=== PATIENT | female | born 1955 | race Caucasian/White ===

== ENCOUNTER 2019-02-01 11:33 | Outpatient (REF) | payer OTHER, SELFPAY ==
--- NOTE | 2019-02-01 09:30 | PAPFT_PTH ---
PATIENT: Pinky Dillon LOC: [facility] U#:[id number] AGE/SX: 63/F ROOM: RE02/01/[address]: LASHAWN Guidry : 1955 BED: DIS: 02/01/2019 SPEC #: [id number] RECD: 02/01/19 12:44 STATUS: ADRIA GARLAND #: [id number] AVELINA: 02/01/19 09:[address]: Klyah Vegas DEPT: [facility], LAT[facility] Cytology RECD BY: Jumana Carey Tissues: 1 - CX/ENDOCX FOR PAP SMEARS Procedures: PAP THIN PREP/UVM Screening HPV DNA PROBE Comments: [id number]
== END 2019-02-01 11:53 ==
LOC: LBN 11:33
PROVIDERS: Visit Provider Nurse Practitioner Family
DX: Z12.4 Encounter for screening for malignant neoplasm of cervix (principal); Z11.51 Encounter for screening for human papillomavirus (HPV)
CPT/HCPCS: 88142; 87624

== ENCOUNTER 2019-03-12 09:19 | Outpatient (CLI) | payer OTHER, SELFPAY ==
--- NOTE | 2019-03-12 12:18 | DI.MAMMO_ITS ---
EXAM: MG MAMMO SCREENING CLINICAL HISTORY: screening TECHNIQUE: Bilateral full field digital CC and MLO mammographic images were obtained with 3D tomosyn thesis and utilizing computer aided detection (CAD). COMPARISON: Available for comparison. FINDINGS: Masses/Architectural Distortion: None seen. Microcalcifications: No suspicious pleomorphic-type are seen. Skin Thickening/Nipple Retraction: None. IMPRESSION: 1. No significant interval change with no specific features of malignancy noted. 2. Unless there is more urgent need, screening mammography is recommended, as per [employer] guidelines. ACR BI-RAD Category- 1 Negative Breast Density - Category C - Heterogeneously dense The mammogram demonstrates the patient's breast tissue is dense. Dense breast tissue is very common a nd is not abnormal but dense breast tissue can make it harder to find cancer on a mammogram. Also, de nse breast tissue may increase their breast cancer risk. This information about the result of the [facility] mogram report was provided to the patient to raise their awareness. Use this report when you speak wi th the patient about their risks for breast cancer, which includes their family history. At that time , you may recommend for more screening tests (Ultrasound or MRI) as they might be useful based on the ir risk. A negative radiographic report should not delay biopsy if a dominant or clinically suspicious mass is present. Up to ten percent of cancers are not identified on mammography. A negative report may reinforce clinical impression. Adenosis and dense breasts may obscure an underlying neoplasm. False positive reports average 6 to 10%. Patient will receive a letter notifying them of these results.
== END 2019-03-12 09:39 ==
PROVIDERS: Visit Provider Nurse Practitioner Family
DX: Z12.31 Encounter for screening mammogram for malignant neoplasm of breast (principal)
CPT/HCPCS: 77063; 77067

== ENCOUNTER 2020-07-06 01:20 | Outpatient (CLI) | payer OTHER, SELFPAY ==
--- NOTE | 2020-07-06 06:30 | DI.MAMMO_ITS ---
EXAM: MAMMO SCREENING CLINICAL HISTORY: screening,Z12.39 TECHNIQUE: Mammograms were interpreted according to the usual protocol including computer analysis w [employer] CAD system, tomosynthesis and C-view imaging. COMPARISON: 2010 through 2018 FINDINGS: The breasts are composed of heterogeneously dense fibroglandular densities, Breast Density category C . No suspicious masses or suspicious microcalcifications are seen. No skin thickening or abnormal axillary lymph nodes are seen. There has been no significant change from prior exams. IMPRESSION: BI-RADS Category 1, Negative mammogram. Yearly screening mammography is recommended. Breast Density Category C, heterogeneously Dense. The mammogram demonstrates the patient's breast tissue is dense. Dense breast tissue is very common a nd is not abnormal but dense breast tissue can make it harder to find cancer on a mammogram. Also, de nse breast tissue may increase breast cancer risk. This information about the result of the mammogram report was provided to the patient to raise their awareness. Use this report when you speak with the patient about their risks for breast cancer, which includes their family history. At that time, you may recommend additional screening tests (Ultrasound or MRI) as they might be useful based on their r isk. A negative radiographic report should not delay biopsy if a dominant or clinically suspicious mass is present. Up to ten percent of cancers are not identified on mammography. A negative report may reinforce clinical impression. Adenosis and dense breasts may obscure an underlying neoplasm. False positive reports average 6 to 10%.
== END 2020-07-06 01:40 ==
PROVIDERS: PCP Family Medicine; Visit Provider Nurse Practitioner Family
DX: Z12.31 Encounter for screening mammogram for malignant neoplasm of breast (principal)
CPT/HCPCS: 77063; 77067

== ENCOUNTER 2021-06-17 11:17 | Outpatient (REF) | payer OTHER, SELFPAY ==
--- NOTE | 2021-06-17 09:30 | PAPFT_PTH ---
PATIENT: Pinky Dillon LOC: [facility] U#:[id number] AGE/SX: 65/F ROOM: RE06/17/[address]: LASHAWN Guidry : 1955 BED: DIS: 06/17/2021 SPEC #: [id number] RECD: 06/17/21 12:44 STATUS: ADRIA GARLAND #: [id number] AVELINA: 06/17/21 09:[address]: Kylah Vegas DEPT: [facility] Cytology RECD BY: Jumana Carey Tissues: 1 - CX/ENDOCX FOR PAP SMEARS Procedures: PAP THIN PREP/UVM Screening HPV DNA PROBE Comments: [id number]
== END 2021-06-17 11:18 | disposition home or self-care (01) ==
LOC: LBN 11:17
PROVIDERS: PCP Nurse Practitioner Family; Visit Provider Nurse Practitioner Family
DX: Z12.4 Encounter for screening for malignant neoplasm of cervix (principal); Z11.51 Encounter for screening for human papillomavirus (HPV)
CPT/HCPCS: 88142; 87624

== ENCOUNTER 2021-06-17 12:48 | Outpatient (REF) | payer OTHER, SELFPAY | END 2021-06-17 12:49 | disposition home or self-care (01) | LOC: LBN 12:48 | PROVIDERS: PCP Nurse Practitioner Family; Visit Provider Nurse Practitioner Family ==

== ENCOUNTER → 2021-10-07 01:15 | Outpatient (CLI) | payer OTHER, SELFPAY ==
--- NOTE | 2021-10-07 08:00 | DI.MAMMO_ITS ---
Exam(s) MAMMO SCREENING EXAM: MAMMO SCREENING CLINICAL HISTORY: screening,z12.39. TECHNIQUE: Bilateral full field digital CC and MLO mammographic images were obtained with 3D tomosyn thesis and utilizing computer aided detection (CAD). COMPARISON: Prior mammograms were reviewed, the most recent being June 2020. FINDINGS: Has been no significant change in the appearance and distribution of the fibroglandular tissue which is again noted be moderately dense.. There are no CAD designations. There are no new spiculated masses nor malignant appearing microcalcification groups. There is no significant architectural distortion nor skin thickening-retraction. IMPRESSION: Moderately dense fibroglandular tissue. No obvious radiographic evidence of malignancy. BI-RADS Category 1 - Negative Breast Density - Category C - Heterogeneously dense Breast density Category C or D implies that the patient has dense breast tissue. Dense breast tissue can make it harder to find cancer on a mammogram. Dense breast tissue is also associated with an incr eased risk of breast cancer. This information about the result of the mammogram report was provided to the patient to raise their awareness. Use this report when you speak with the patient about their risks for breast cancer, which includes their family history. At that time, you may recommend additional screening tests (Ultrasoun d or MRI) as these tests may add significant information. A negative radiographic report should not delay biopsy if a dominant or clinically suspicious mass is present. Up to ten percent of cancers are not identified on mammography. A negative report may reinforce clinical impression. Adenosis and dense breasts may obscure an underlying neoplasm. False positive reports average 6 to 10%. Patient will receive a letter notifying them of these results.
== END ==
PROVIDERS: PCP Family Medicine; Visit Provider Nurse Practitioner Family
DX: Z12.31 Encounter for screening mammogram for malignant neoplasm of breast (principal)
CPT/HCPCS: 77063; 77067

== ENCOUNTER 2021-10-12 02:38 | Outpatient (CLI) | payer OTHER, SELFPAY ==
[2021-10-12 13:17] LABS: Calculated LDL 168 mg/dL (<100); Cholesterol 280 mg/dL (<200); HDL Cholesterol 105 mg/dL (40-60); Triglyceride 37 mg/dL (<150)
[2021-10-13 09:48] LABS: HIV-1/2 Ag & Ab Screen Negative (Negative)
[2021-10-13 10:28] LABS: Hepatitis C Ab w Rflx HCV PCR Reactive (Negative)
[2021-10-14 13:05] LABS: HCV RNA Qualitative Undetected (Undetected)
== END 2021-10-12 02:39 | disposition home or self-care (01) ==
LOC: LOS 02:38
PROVIDERS: PCP Family Medicine; Visit Provider Family Medicine
DX: Z00.00 Encounter for general adult medical examination without abnormal findings (principal); Z13.220 Encounter for screening for lipoid disorders; Z11.4 Encounter for screening for human immunodeficiency virus [HIV]; Z11.59 Encounter for screening for other viral diseases
CPT/HCPCS: 36415; 80061; 86803; 87389; 87522

== ENCOUNTER → 2022-01-06 01:43 | Outpatient (CLI) | payer OTHER, SELFPAY ==
--- NOTE | 2022-01-06 14:17 | DI.DEXA_ITS ---
Exam(s) XR DEXA BONE DENSITY W/WO KARENA EXAM: XR DEXA BONE DENSITY W/WO KARENA CLINICAL HISTORY: screening FOR OSTEOPOROSIS IN POSTMENOPAUSAL WOMAN,Z78.0 TECHNIQUE: COMPARISON: No exams were available for comparison FINDINGS: Lateral Spine Image: Unremarkable. No compression deformities identified. Left hip: Total T-Score: -2.1 Total Z-Score: -0.8 T- and Z-scores: Findings are consistent with osteopenia. Lumbar Spine: Total T-Score: -1.8 Total Z-Score: 0.1 T- and Z-scores: Findings are consistent with osteopenia. IMPRESSION: Osteopenia in the left hip and lumbar spine.
== END ==
PROVIDERS: PCP Family Medicine; Visit Provider Family Medicine
DX: Z78.0 Asymptomatic menopausal state (principal); Z13.820 Encounter for screening for osteoporosis; M85.89 Other specified disorders of bone density and structure, multiple sites
CPT/HCPCS: 77080

== ENCOUNTER 2022-03-15 14:19 | Outpatient (REF) | payer OTHER, SELFPAY ==
[2022-03-17 12:30] LABS: COVID-19 RT-PCR UVMMC Result Negative (Negative)
== END 2022-03-15 14:20 | disposition home or self-care (01) ==
LOC: LBN 14:19
PROVIDERS: PCP Family Medicine; Visit Provider Physician Assistant
DX: Z20.822 Contact with and (suspected) exposure to COVID-19 (principal)
CPT/HCPCS: U0003

== ENCOUNTER 2022-03-25 16:45 | Inpatient (IN) | payer OTHER, MEDICARE, SELFPAY ==
--- NOTE | 2022-03-25 | DI.RAD_ITS ---
Exam(s) XR PELVIS AP EXAM: XR PELVIS AP CLINICAL HISTORY: ORTHO PELVIS FOR PREOP TEMPLATING. TECHNIQUE: 2D digital imaging was performed. One AP view. COMPARISON: CR,XR XR PELVIS AP from 03/25/2022 FINDINGS: BONES: No change right femoral neck fracture. No bony destructive lesion is seen. JOINTS: No dislocation present. No joint space narrowing is present. No hip joint space narrowing. SOFT TISSUE: Normal. IMPRESSION: Stable appearance right femoral neck fracture. DATA REPOSITORY: RADIATION DOSE DELIVERED:
[2022-03-25 16:48] VITALS: BP 151/84; PULSE 91; RESP 18; TEMP 36; O2SAT 98
--- NOTE | 2022-03-25 17:00 | DI.RAD_ITS ---
Exam(s) XR PELVIS AP EXAM: XR PELVIS AP CLINICAL HISTORY: fall, pain. TECHNIQUE: 2D digital imaging was performed. COMPARISON: No exams were available for comparison FINDINGS: BONES: Subcapital fracture with some impaction involving the right femur. No additional fractures. No bony destructive lesion is seen. JOINTS: No dislocation present. No joint space narrowing is present. SOFT TISSUE: Normal. IMPRESSION: Subcapital fracture right femur. DATA REPOSITORY: RADIATION DOSE DELIVERED:
--- NOTE | 2022-03-25 17:00 | DI.RAD_ITS ---
Exam(s) XR CHEST 1V IN DI DEPT EXAM: XR CHEST 1V IN DI DEPT CLINICAL HISTORY: cough 1.5 weeks, fall today TECHNIQUE: 2D digital imaging was performed. COMPARISON: No exams were available for comparison FINDINGS: LUNGS: Vague opacities right lung base and adjacent to the left heart border. Findings could represe nt pneumonia versus atelectasis or scarring. No pleural abnormality seen. HEART: Normal. AORTA: Calcification. Mildly tortuous BONES: Unremarkable for age. Soft tissues: Unremarkable. IMPRESSION: Mild bilateral infiltrates versus atelectasis or scarring. DATA REPOSITORY: RADIATION DOSE DELIVERED:
--- NOTE | 2022-03-25 17:02 | DI.RAD_ITS ---
Exam(s) XR FEMUR RT EXAM: XR FEMUR RT CLINICAL HISTORY: fall, pain. TECHNIQUE: 2D digital imaging was performed. COMPARISON: No exams were available for comparison FINDINGS: BONES: Subcapital fracture of the right femoral neck with significant varus angulation and some impac tion. No additional fractures are seen more distally. No bony destructive lesion is seen. Visualize d portion of knee and hip joints are unremarkable. SOFT TISSUE: Normal. IMPRESSION: Subcapital fracture right femoral neck. DATA REPOSITORY: RADIATION DOSE DELIVERED:
[2022-03-25] MEDS: Ondansetron 4 MG/2 ML VIAL IVP (17:22)
[2022-03-25] MEDS: Normal Saline Flush 10 ML SYR IVP (17:23)
[2022-03-25] MEDS: fentaNYL 100 MCG/2 ML VIAL 50 MCG IVP (17:23)
[2022-03-25 17:25] LABS: Abs Immature Grans 0.04 10^3/uL (0.0-0.06); Absolute Basophil Count 0.03 10^3/uL (0.0-0.2); Absolute Eosinophil Count 0.08 10^3/uL (0.0-0.7); Absolute Lymphocyte Count 1.58 10^3/uL (1.2-3.4); Absolute Monocyte Count 0.76 10^3/uL (0.1-0.8); Basophils % 0.4; HCT 38.7 % (36.0-46.0); HGB 12.3 g/dL (11.2-15.7); Immature Grans % 0.5; Lymphocytes % 20.5; MCH 29.5 pg (27.0-33.0); MCHC 31.8 % (32.0-36.0); MCV 93 fL (80-95); MPV 9.5 fL (8.0-11.0); Monocytes % 9.9; Neutrophils % 67.7; Platelet Count 183 10^3/uL (130-400); RBC 4.17 10^6/uL (3.93-5.22); RDW 13.6 % (11.7-14.6); RDW-SD 46.5 fL; WBC 7.69 10^3/uL (4.4-10.8)
[2022-03-25 17:35] LABS: Anion Gap 6.5 mmol/L (3-11); BUN 11 mg/dL (7-18); CO2 28.5 mmol/L (21.0-32.0); CREATININE 0.8 mg/dL (0.55-1.02); Chloride 100 mmol/L (98-107); Estimated GFR 80.71 (mL/min/1.73m2); Glucose 112 mg/dL (74-106); Potassium 4.1 mmol/L (3.5-5.1); Sodium 135 mmol/L (136-145)
--- NOTE | 2022-03-25 17:57 | ED.GENADUL_ITS ---
Discharge Plan Disposition Patient Disposition: Admit to [facility] Condition: Serious Discharge Details Chief Complaint: Orthopedic Clinical Impression: Closed displaced fracture of right femoral neck, Pneumonia Primary Care Provider: Kate Goff ED Provider: Alexi Butler Home Meds and New Rx's Prescriptions: No Action estradiol [Vagifem] 10 mcg tablet 10 mcg VG DAILY 14 Days Qty: 24 5RF Rx Instructions: use one tab in vagina daily at bedtime for 2-3 weeks then twice weekly lysine 1,000 MG tablet 1,000 mg PO PRN Medical Decision Making -- 66-year-old female here with right hip pain after mechanical fall about an hour prior to arrival. Patient fell and then had difficulty ambulating and fell again down 4 steps. Patient neurovascular tact distally. Concern for hip fracture versus pelvic fracture. Patient also with productive cough. She had negative COVID testing earlier this week. She does have subtle rales bilaterally. She is saturating well and in no respiratory distress. I will obtain chest x-ray. X-ray of the right hip reviewed and interpreted by me: Femoral neck fracture. I called and spoke with orthopedist on-call who request CT of the hip be performed. The rest patient be admitted to the medicine service. -- Chest x-ray was reviewed and interpreted by me: Lateral view could not be obtained, concern for left lower lobe infiltrate. Plan to initiate treatment with ceftriaxone 1 g and doxycycline 100 mg IV . Patient was initially given fentanyl 50 mcg for pain. I will give acetaminophen 1 g IV for pain. -- Was interpreted by radiology as lingular pneumonia. I spoke with Dr. Paz, on-call hospitalist, discussed ED presentation and course, he will admit the patient request bridging orders be placed to the floor. Lab Data Lab results reviewed: Yes I reviewed the patient's lab results. Labs: Laboratory Tests Range/Units 03/25/22 03/25/22 03/25/22 17:13 17:13 17:13 WBC (4.4-10.8) 10^3/uL 7.69 RBC (3.93-5.22) 10^6/uL 4.17 Hgb (11.2-15.7) g/dL 12.3 Hct (36.0-46.0) % 38.7 MCV (80-95) fL 93 MCH (27.0-33.0) pg 29.5 MCHC (32.0-36.0) % 31.8 L RDW (11.7-14.6) % 13.6 Plt Count (130-400) 10^3/uL 183 MPV (8.0-11.0) fL 9.5 Immature Gran % 0.5 Neutrophils % 67.7 Lymphocytes % 20.5 Monocytes % 9.9 Eosinophils % 1.0 Basophils % 0.4 Nucleated RBC % (0.0-0.3) % 0.0 Absolute Neutrophils (1.2-6.7) 10^3/uL 5.20 Absolute Lymphocytes (1.2-3.4) 10^3/uL 1.58 Absolute Monocytes (0.1-0.8) 10^3/uL 0.76 Absolute Eosinophils (0.0-0.7) 10^3/uL 0.08 Absolute Basophils (0.0-0.2) 10^3/uL 0.03 Sodium (136-145) mmol/L 135 L Potassium (3.5-5.1) mmol/L 4.1 Chloride (98-107) mmol/L 100 Carbon Dioxide (21.0-32.0) mmol/L 28.5 Anion Gap (3-11) mmol/L 6.5 BUN (7-18) mg/dL 11 Creatinine (0.55-1.02) mg/dL 0.8 Est GFR (CKD-EPI 2020) (mL/min/1.73m2) 80.71 Glucose (74-106) mg/dL 112 H Calcium (8.5-10.1) mg/dL 9.0 Patient ABO/Rh B Positive Antibody Screen NEGATIVE Sign Out No HPI General Mode of arrival: ambulatory . Date/Time Provider Initiated Documentation: 03/25/22 17:02 . Limitations to Documentation: no limitations . Information obtained by: patient . HPI Narrative: 66-year-old female presents with chief complaint of left hip pain. Patient notes she slipped on ice about an hour prior to arrival and landed on her right hip. She had difficulty ambulating after this and fell down 4 steps reinjuring the area. Pain is severe and worse with any movement. No associated head injury or headache. No chest pain or abdominal pain. No back pain or neck pain. Patient does note cough for the past week and a half. She was tested negative for COVID. Cough is productive of yellow sputum and worse in the morning. No fever. Related Data Home Medications Medication Instructions Recorded Confirmed lysine 1,000 mg tablet 1,000 mg PO PRN 12/22/15 03/25/22 estradiol 10 mcg vaginal tablet 10 mcg vaginal DAILY 2 weeks #24 06/17/21 03/25/22 (Vagifem) tabs Previous Rx's Medication Instructions Recorded estradiol 10 mcg vaginal tablet 10 mcg vaginal DAILY 2 weeks #24 06/17/21 (Vagifem) tabs Allergies Allergy/AdvReac Type Severity Reaction Status Date / Time No Known Drug Allergies Allergy Verified 03/25/22 16:53 General Stated Complaint: Orthopedic PAGE: 3 Review of Systems All systems reviewed & are unremarkable except as noted in HPI and below Constitutional Constitutional: Denies fever(s) Cardiovascular Cardiovascular: Denies dyspnea Respiratory Respiratory: Reports as per HPI and Denies dyspnea Musculoskeletal Musculoskeletal: Reports as per HPI PFSH All Active Problems (Updated 03/25/22 @ 19:08 by Alexi Butler MD) Closed displaced fracture of right femoral neck (Acute) Pneumonia (Acute) Weight loss observed on examination (Acute) COVID-19 (Acute) Tested + 12/31/21, no work secondary to continued symptoms. No antivirals. Rapid in office test NEG for Influenza & Covid today. Family history of colon cancer (Acute 03/17/17) Mother Dx at 77 Osteopenia after menopause (Acute ~01/07/22) Medical History History of COVID-19 Family History Mother , 80 Disorder of thyroid gland Personal history of malignant neoplasm COLON Father , 52 Heart disease Son Thyroid cancer Sister No problems noted. Sister No problems noted. Sister No problems noted. Brother , 48 No problems noted. Brother , 50 Alcohol use disorder Diabetes Brother No problems noted. Brother No problems noted. 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 [employer] Pets and animals: Yes Pets and animals: cat(s) Sexually active: Yes Do you think of yourself as: straight/heterosexual Current gender identity: female What is your relationship status?: How often do you talk on the phone with friends or family?: once per week How often do you get together with friends or relatives?: once per week How often do you attend mormon or yazdanism services?: decline to answer Do you belong to any clubs or organized social groups?: no Panel score (0-1 are the most socially isolated patients): 1 What type of physical activity do you participate in: walking Duration: 30-45 minutes/day Frequency: 1-2 times per week Coretta/Baptism: Taoism Special coretta needs: No Seatbelt use: always Helmet use: Yes Helmet use: always Drive intox or ride w/intox hearse driver: No Do you feel safe at home: Yes Do you feel safe in your relationship?: Yes Additional Social history: Enjoys camping, gardening, spending time with family / friends. Exam Const General: cooperative and no acute distress HENMT Head: normocephalic and atraumatic Mouth: moist mucous membranes Eyes Conjunctivae: normal conjunctivae Neck Neck: trachea midline and supple Resp Auscultation: no rhonchi Cardio Rate: regular rate and not tachycardic Rhythm: regular rhythm GI Palpation: soft, not firm, no guarding, no masses, not rigid and nontender Back/Spine/Pelvis Cervical Spine: cervical ROM normal, No cervical spinal tenderness and No step off deformity Thoracic/Lumbar Spine: thoracic and lumbar spine normal to inspection, No thoracic spinal tenderness and No lumbar spinal tenderness Skin General skin exam: no rashes or lesions noted Neuro General: patient alert, patient awake and tone normal Extrem General: no edema Right lower extremity: hip/thigh Details: tenderness Location: of the hip Location: laterally, knee Details: normal to inspection, lower leg Details: normal to inspection, ankle Details: normal to inspection and foot Details: normal to inspection Psych Appearance: grossly normal Mental Status: mental status grossly normal Course Vital Signs Vital signs: Vital Signs Temperature 36.0 C L 03/25/22 16:48 Pulse 91 H 03/25/22 16:48 Respiratory Rate 18 03/25/22 16:48 Blood Pressure 151/84 H 03/25/22 16:48 Pulse Oximetry 98 03/25/22 16:48 Temperature 36.0 C L 03/25/22 16:48 Temperature Source Temporal Artery Scan 03/25/22 16:48 Pulse 91 H 03/25/22 16:48 Respiratory Rate 18 03/25/22 16:48 Respiratory Effort Non-Labored 03/25/22 16:51 Blood Pressure 151/84 H 03/25/22 16:48 Blood Pressure Position Sitting 03/25/22 16:48 Pulse Oximetry 98 03/25/22 16:48 Oxygen Delivery Method Room Air 03/25/22 16:48 Oxygen Flow Rate 0 03/25/22 16:48 Pain Level 10 03/25/22 17:23 Lab/Test Results Lab/Test Results: Laboratory Tests Range/Units 03/25/22 03/25/22 17:13 17:13 WBC (4.4-10.8) 10^3/uL 7.69 RBC (3.93-5.22) 10^6/uL 4.17 Hgb (11.2-15.7) g/dL 12.3 Hct (36.0-46.0) % 38.7 MCV (80-95) fL 93 MCH (27.0-33.0) pg 29.5 MCHC (32.0-36.0) % 31.8 L RDW (11.7-14.6) % 13.6 Plt Count (130-400) 10^3/uL 183 MPV (8.0-11.0) fL 9.5 Immature Gran % 0.5 Neutrophils % 67.7 Lymphocytes % 20.5 Monocytes % 9.9 Eosinophils % 1.0 Basophils % 0.4 Nucleated RBC % (0.0-0.3) % 0.0 Absolute Neutrophils (1.2-6.7) 10^3/uL 5.20 Absolute Lymphocytes (1.2-3.4) 10^3/uL 1.58 Absolute Monocytes (0.1-0.8) 10^3/uL 0.76 Absolute Eosinophils (0.0-0.7) 10^3/uL 0.08 Absolute Basophils (0.0-0.2) 10^3/uL 0.03 Sodium (136-145) mmol/L 135 L Potassium (3.5-5.1) mmol/L 4.1 Chloride (98-107) mmol/L 100 Carbon Dioxide (21.0-32.0) mmol/L 28.5 Anion Gap (3-11) mmol/L 6.5 BUN (7-18) mg/dL 11 Creatinine (0.55-1.02) mg/dL 0.8 Est GFR (CKD-EPI 2020) (mL/min/1.73m2) 80.71 Glucose (74-106) mg/dL 112 H Calcium (8.5-10.1) mg/dL 9.0 PAWSS Have you Been Recently Intoxicated or Drunk Within the Last 30 days?: No Have you Ever Experienced Previous Episodes of Alcohol Withdrawal?: No Have you ever Experienced Withdrawal Seizures?: No Have you ever Experienced Delirium Tremens(DT)s?: No Have you ever undergone Alcohol Rehabilitation Treatment (i.e, inpt ot outpatient treatment programs)?: No Have you ever Experienced Blackouts?: No Have you ever Combined Alcohol with other Downers within the last 90 days?: No Have you ever Combined Alcohol with any other Substance of Abuse during the last 90 days?: No Positive Blood Alcohol level on Presentation? [PCS.BAL]: No Evidence of Increased Autonomic Activity (i.e. HR>120, tremor, sweating, agitation, nausea)?: No Result: 0
--- NOTE | 2022-03-25 18:15 | DI.CT_ITS ---
Exam(s) CT LOWER EXTREMITY RT WO EXAM: CT LOWER EXTREMITY RT WO CLINICAL HISTORY: trauma, fall, pain. TECHNIQUE: Imaging Protocol: Axial computed tomography images with coronal and sagittal reformatted images were created and reviewed. CONTRAST MATERIAL: Intravenous: Omnipaque 350 Contrast volume:structured data in ml Contrast route:IV - COMPARISON: CR,XR XR PELVIS AP from 03/25/2022 CR,XR XR FEMUR RT from 03/25/2022 FINDINGS: Bones: There is a fracture through the mid cervical neck with some varus angulation and impaction. Few tiny comminuted fragments are seen. No additional fractures. No cellulitic or osteomyelitic c hanges are identified. There is no joint space narrowing or cystic degeneration seen. No lytic or sc lerotic lesions are identified. Soft Tissues: Area of increased density in the subcutaneous fat of the inferior right buttock. IMPRESSION: Subcapital fracture of the right femur with angulation and impaction. RADIATION DOSE DELIVERED: 178.94mGy.cm Total DLP DATA REPOSITORY: All CT scans at this facility are submitted to the National Radiology Data Registry (NRDR) Dose Index Registry (DIR) with the [employer] (ACR). RADIATION OPTIMIZATION: All CT scans at this facility use at least one of these dose optimization te chniques: automated exposure control; mA and/or kV adjustment per patient size (includes targeted exa ms where dose is matched to clinical indication); or iterative reconstruction.
--- NOTE | 2022-03-25 18:35 | DI.VRAD_ITS ---
PROCEDURE INFORMATION: Exam: XR Pelvis Exam date and time: 03/25/2022 5:39 PM Age: 66 years old Clinical indication: Injury or trauma; Fall; Blunt trauma (contusions or hematomas); Right; Hip TECHNIQUE: Imaging protocol: Radiologic exam of the pelvis. Views: 1 or 2 view. COMPARISON: No relevant prior studies available. FINDINGS: Bones/joints: There is a moderately displaced right femoral neck fracture. There is an age indeterminate right sacral ala fracture. No dislocation. Soft tissues: Unremarkable. IMPRESSION: 1. Right femoral neck fracture. 2. Right sacral ala fracture. Dictated and Authenticated by: Vinny Terrazas MD. Ordering:RADHA Truong MD
--- NOTE | 2022-03-25 18:35 | DI.VRAD_ITS ---
PROCEDURE INFORMATION: Exam: XR Right Femur Exam date and time: 03/25/2022 5:41 PM Age: 66 years old Clinical indication: Other: Fall, pain TECHNIQUE: Imaging protocol: Radiologic exam of the Right femur. Views: 2 views. COMPARISON: CR XR PELVIS AP 03/25/2022 5:39 PM FINDINGS: Bones/joints: There is a moderately displaced right femoral neck fracture. Soft tissues: Unremarkable. IMPRESSION: Right femoral neck fracture. Dictated and Authenticated by: Vinny Terrazas MD. Ordering:RADHA Truong MD
--- NOTE | 2022-03-25 18:36 | DI.VRAD_ITS ---
PROCEDURE INFORMATION: Exam: XR Chest Exam date and time: 03/25/2022 5:46 PM Age: 66 years old Clinical indication: Other: Cough, 1.5 weeks, fall today TECHNIQUE: Imaging protocol: Radiologic exam of the chest. Views: 1 view. COMPARISON: No relevant prior studies available. FINDINGS: Lungs: There is lingular airspace opacity. The right lung is clear. Pleural spaces: No pleural effusion. No pneumothorax. Heart/Mediastinum: Heart size is normal for technique. Bones/joints: No acute bone abnormality. IMPRESSION: Lingular pneumonia. Dictated and Authenticated by: Vinny Terrazas MD. Ordering:RADHA Truong MD
[2022-03-25 18:49] LABS: Source Nasal/Nares
[2022-03-25] MEDS: ACETAMINOPHEN 1,000 MG/100 ML BTL 400 MG IVPB (19:00)
--- NOTE | 2022-03-25 19:00 | RT.EKG_ITS ---
APPROVED REPORT Exam: Resting ECG Reason for Exam: preop Patient Location: E HR:79 bpm ECG Measurements Heart Rate 79 AXIS FL 140 P 63 QRSd 87 QRS 16 QT 383 T 29 QTc 439 Conclusion Sinus rhythm...normal P axis, V-rate 60- 99 Low voltage, extremity leads...all extremity leads <0.5mV
[2022-03-25 19:19] LABS: COVID-19 PCR Negative (Negative)
[2022-03-25] MEDS: cefTRIAXone 1 GM/50 ML BAG IVPB (19:58)
--- NOTE | 2022-03-25 20:10 | DI.VRAD_ITS ---
PROCEDURE INFORMATION: Exam: CT Right Lower Extremity Without Contrast, Hip Exam date and time: 03/25/2022 7:27 PM Age: 66 years old Clinical indication: Injury or trauma; Fall; Blunt trauma; Hip; Right; Injury date: 03/25/22 TECHNIQUE: Imaging protocol: CT of the Right lower extremity without contrast was performed. Exam focused on the hip. Radiation optimization: All CT scans at this facility use at least one of these dose optimization techniques: automated exposure control; mA and/or kV adjustment per patient size (includes targeted exams where dose is matched to clinical indication); or iterative reconstruction. COMPARISON: CR XR FEMUR RT 03/25/2022 5:41 PM FINDINGS: Bones/joints: Acute midcervical fracture of the right femoral neck demonstrating about 35 degrees apex anterior angulation with about 10 degrees impaction at the medial cortical margin, producing mild varus angulation. Mild comminution at the medial cortical margin. No intertrochanteric extension. No other acute fractures. Soft tissues: Mild soft tissue swelling/stranding near the common hamstring tendon origin which may indicate an element of strain without features of high-grade retracted tear. No soft tissue hematoma. IMPRESSION: 1. Right femoral neck fracture detailed above. No intertrochanteric extension. 2. Mild stranding at the common hamstring tendon origin suggesting an element of strain without gross features of high-grade tendon tear by CT. Dictated and Authenticated by: Carlos A Bautista MD. Ordering:RADHA Truong MD
[2022-03-25] MEDS: DOXYCYCLINE 100 MG in Normal Saline 100 ML IVPB (20:58)
[2022-03-25] MEDS: HYDROmorphone 2 MG/ML SYR 1 MG IVP (21:00)
--- NOTE | 2022-03-25 21:05 | HPE_ITS ---
Date of service: 03/25/22 Time of Service: 21:06 Assessment and Plan Assessment and plan (1) Closed displaced fracture of right femoral neck: Start date: 03/25/22 Status: Acute Assessment and plan: This is a 66-year-old lady who fell injuring her right hip then walked on that leg with caution falling again down 4 stairs when trying to go off of her deck. She has a displaced closed fracture of the femoral neck on the right and has planned surgical repair in the morning with orthopedics consulted through the ED. She will be n.p.o. after midnight. Pain management and IV hydration overnight. Patient also has pneumonia which will be treated but she is minimally symptomatic at this time. EKG was normal. Lung findings were normal. She is not hypoxic or tachypneic. Anesthesia will need to be aware of her respiratory infection. She is COVID negative. She was not screened for flu not having fever or symptoms that are significant at this time having been 2 weeks ill prior to admission. She is a full code. (2) Pneumonia: Start date: 03/25/22 Status: Acute Assessment and plan: Patient had respiratory symptoms with cough and upper respiratory symptoms 2 weeks prior to admission which was slowly clearing with no fever and minimal symptoms presently though chest x-ray does show a left lingular infiltrate. She will be treated with doxycycline and ceftriaxone IV perioperatively and anesthes ia need to be aware of the small infiltrate. She is not oxygen dependent and has no cough presently. She has no fever and was not screened for flu now being 2 weeks out from her acute illness. She is COVID-negative. Qualifiers: Pneumonia type: due to unspecified organism Lung location: middle lobe of lung (3) Sacral fracture, closed: Start date: 03/25/22 Status: Acute Assessment and plan: Orthopedics will review this fracture seen on pelvic imaging. Most likely this is not a surgical issue but may contribute to her discomfort during rehabilitation. Qualifiers: Encounter type: initial encounter Zone of sacrum fracture: unspecified portion of sacrum Qualified Code(s): S32.10XA - Unspecified fracture of sacrum, initial encounter for closed fracture History of Present Illness History of Present Illness Chief Complaint: Fall onto right hip slipping on icy driveway Narrative: This is a 66-year-old female patient who presented to the ED complaining of righ t hip pain. She was on her [place] driveway when she slipped and fell onto her right hip with difficulty bearing weight after that injury. She went home and walked into her house with difficulty taking 1 step at a time. She forgot her cell phone therefore was going back out of her house and with the forceps off of her deck she slipped falling onto her right hip again. This time she could not bear weight at all. With her first injury she was in significant pain but the second injury was more debilitating. She was brought to the ED for evaluation and was found to have a femoral neck fracture of the right hip which was displaced along with a sacral elbert fracture on further imaging which is not a surgical issue. Orthopedics was consulted and patient does have planned hip repair in the morning. 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 She is on minimal medications and has no cardiovascular or respiratory symptoms other than a cold 2 weeks ago which slowly was clearing. In the ED chest x-ray also revealed left lingular infiltrate for which she is being treated with Zithromax and Rocephin. She has no fever. EKG for preop was normal sinus rhythm and within normal limits. She has lost 20 pounds in the recent past without explanation and this is being investigated further as an outpatient. She has no symptoms of why she may be losing weight except for possible change in eating habits being only p art-time at hospital. She is a full code. Review of Systems Narrative: 13 point review of systems otherwise unrevealing or stable. PFSH All Active Problems (Updated 03/26/22 @ 07:00 by Flako Paz) Sacral fracture, closed (Acute) Closed displaced fracture of right femoral neck (Acute) Pneumonia (Acute) Weight loss observed on examination (Acute) COVID-19 (Acute) Tested + 12/31/21, no work secondary to continued symptoms. No antivirals. Rapid in office test NEG for Influenza & Covid today. Family history of colon cancer (Acute 03/17/17) Mother Dx at 77 Osteopenia after menopause (Acute ~01/07/22) Medical History History of COVID-19 Family History Mother , 80 Disorder of thyroid gland Personal history of malignant neoplasm COLON Father , 52 Heart disease Son Thyroid cancer Sister No problems noted. Sister No problems noted. Sister No problems noted. Brother , 48 No problems noted. Brother , 50 Alcohol use disorder Diabetes Brother No problems noted. Brother No problems noted. 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 [employer] Pets and animals: Yes Pets and animals: cat(s) Sexually active: Yes Do you think of yourself as: straight/heterosexual Current gender identity: female What is your relationship status?: How often do you talk on the phone with friends or family?: once per week How often do you get together with friends or relatives?: once per week How often do you attend faith or holiness services?: decline to answer Do you belong to any clubs or organized social groups?: no Panel score (0-1 are the most socially isolated patients): 1 What type of physical activity do you participate in: walking Duration: 30-45 minutes/day Frequency: 1-2 times per week Coretta/Gnosticism: Oriental Orthodox Special coretta needs: No Seatbelt use: always Helmet use: Yes Helmet use: always Drive intox or ride w/intox limo driver: No Do you feel safe at home: Yes Do you feel safe in your relationship?: Yes Additional Social history: Enjoys camping, gardening, spending time with family / friends. Meds Allergies and Home Medications Allergies Allergy/AdvReac Type Severity Reaction Status Date / Time No Known Drug Allergies Allergy Verified 03/25/22 16:53 Home Medications Medication Instructions Recorded Confirmed Type lysine 1,000 mg tablet 1,000 mg PO PRN 12/22/15 03/25/22 History estradiol 10 mcg vaginal tablet 10 mcg vaginal DAILY 2 weeks #24 06/17/21 03/25/22 Rx (Vagifem) tabs Exam Narrative Exam Narrative: General: Patient appears older than stated age with well tanned skin and increased wrinkling with rough texture especially over her face. She is alert and oriented x3 and in no acute distress when not moving. Her right hip is tender with movement and she is lying comfortably in bed with her right foot slightly turned outward and shortened. HEENT: Normocephalic, face with coarsened features as mentioned, eyes with pupils equal and react to light symmetrically, extraocular movement intact and sclera anicteric. Oropharynx with moist mucosa. Neck: Supple without JVD. Back: Normal posture without CVA tenderness. Lungs: Fair aeration and clear to auscultation percussion. Breast: Exam deferred. Heart: Regular rate and rhythm with no murmurs gallops appreciated. Abdomen: Scaphoid contour, soft and nontender to palpation with no palpable hepatosplenomegaly. Genitalia: Exam deferred. Extremities: Without clubbing, cyanosis or pitting edema. Peripheral pulses intact. Right hip is tender to any movement and right leg is slightly shortened with right foot turned outward which is a comfortable position with the patient. Skin: Well tanned over sun exposed areas, otherwise warm and dry with rough texture over mostly upper body. Neuro: Cranial nerves II through XII gross intact, no focalizing motor deficits. Psych: Normal mood and affect. No abnormal thought processes. Remote and r ecent memory intact. Results Imaging Imaging Studies: Exam: CT Right Lower Extremity Without Contrast, Hip Exam date and time: 03/25/2022 7:27 PM Age: 66 years old Clinical indication: Injury or trauma; Fall; Blunt trauma; Hip; Right; Injury date: 03/25/22 TECHNIQUE: Imaging protocol: CT of the Right lower extremity without contrast was performed. Exam focused on the hip. Radiation optimization: All CT scans at this facility use at least one of these dose optimization techniques: automated exposure control; mA and/or kV adjustment per patient size (includes targeted exams where dose is matched to clinical indication); or iterative reconstruction. COMPARISON: CR XR FEMUR RT 03/25/2022 5:41 PM FINDINGS: Bones/joints: Acute midcervical fracture of the right femoral neck demonstrating about 35 degrees apex anterior angulation with about 10 degrees impaction at the medial cortical margin, producing mild varus angulation. Mild comminution at the medial cortical margin. No intertrochanteric extension. No other acute fractures. Soft tissues: Mild soft tissue swelling/stranding near the common hamstring tendon origin which may indicate an element of strain without features of high-grade retracted tear. No soft tissue hematoma. IMPRESSION: 1. Right femoral neck fracture detailed above. No intertrochanteric extension. 2. Mild stranding at the common hamstring tendon origin suggesting an element of strain without gross features of high-grade tendon tear by CT. Exam: XR Pelvis Exam date and time: 03/25/2022 5:39 PM Age: 66 years old Clinical indication: Injury or trauma; Fall; Blunt trauma (contusions or hematomas); Right; Hip TECHNIQUE: Imaging protocol: Radiologic exam of the pelvis. Views: 1 or 2 view. COMPARISON: No relevant prior studies available. FINDINGS: Bones/joints: There is a moderately displaced right femoral neck fracture. There is an age indeterminate right sacral ala fracture. No dislocation. Soft tissues: Unremarkable. IMPRESSION: 1. Right femoral neck fracture. 2. Right sacral ala fracture. Exam: XR Right Femur Exam date and time: 03/25/2022 5:41 PM Age: 66 years old Clinical indication: Other: Fall, pain TECHNIQUE: Imaging protocol: Radiologic exam of the Right femur. Views: 2 views. COMPARISON: CR XR PELVIS AP 03/25/2022 5:39 PM FINDINGS: Bones/joints: There is a moderately displaced right femoral neck fracture. Soft tissues: Unremarkable. IMPRESSION: Right femoral neck fracture. Exam: XR Chest Exam date and time: 03/25/2022 5:46 PM Age: 66 years old Clinical indication: Other: Cough, 1.5 weeks, fall today TECHNIQUE: Imaging protocol: Radiologic exam of the chest. Views: 1 view. COMPARISON: No relevant prior studies available. FINDINGS: Lungs: There is lingular airspace opacity. The right lung is clear. Pleural spaces: No pleural effusion. No pneumothorax. Heart/Mediastinum: Heart size is normal for technique. Bones/joints: No acute bone abnormality. IMPRESSION: Lingular pneumonia. Labs Result diagrams: 03/26/22 05:20 03/26/22 05:20 Labs: Laboratory Results - last 24 hr 03/25/22 03/25/22 03/25/22 17:13 17:13 17:13 WBC 7.69 RBC 4.17 Hgb 12.3 Hct 38.7 MCV 93 MCH 29.5 MCHC 31.8 L RDW 13.6 Plt Count 183 MPV 9.5 Immature Gran % 0.5 Neutrophils % 67.7 Lymphocytes % 20.5 Monocytes % 9.9 Eosinophils % 1.0 Basophils % 0.4 Nucleated RBC % 0.0 Absolute Neutrophils 5.20 Absolute Lymphocytes 1.58 Absolute Monocytes 0.76 Absolute Eosinophils 0.08 Absolute Basophils 0.03 Sodium 135 L Potassium 4.1 Chloride 100 Carbon Dioxide 28.5 Anion Gap 6.5 BUN 11 Creatinine 0.8 Est GFR (CKD-EPI 2020) 80.71 Glucose 112 H Calcium 9.0 COVID-19 Source SARS-CoV-2 (PCR) Patient ABO/Rh B Positive Antibody Screen NEGATIVE 03/25/22 18:38 WBC RBC Hgb Hct MCV MCH MCHC RDW Plt Count MPV Immature Gran % Neutrophils % Lymphocytes % Monocytes % Eosinophils % Basophils % Nucleated RBC % Absolute Neutrophils Absolute Lymphocytes Absolute Monocytes Absolute Eosinophils Absolute Basophils Sodium Potassium Chloride Carbon Dioxide Anion Gap BUN Creatinine Est GFR (CKD-EPI 2020) Glucose Calcium COVID-19 Source Nasal/Nares SARS-CoV-2 (PCR) Negative Patient ABO/Rh Antibody Screen Last Vital Signs Temp 36.0 C L 03/25/22 16:48 Pulse 91 H 03/25/22 16:48 Resp 18 03/25/22 16:48 BP 151/84 H 03/25/22 16:48 Pulse Ox 98 03/25/22 16:48 PAWSS Have you Been Recently Intoxicated or Drunk Within the Last 30 days?: No Have you Ever Experienced Previous Episodes of Alcohol Withdrawal?: No Have you ever Experienced Withdrawal Seizures?: No Have you ever Experienced Delirium Tremens(DT)s?: No Have you ever undergone Alcohol Rehabilitation Treatment (i.e, inpt ot outpatient treatment programs)?: No Have you ever Experienced Blackouts?: No Have you ever Combined Alcohol with other Downers within the last 90 days?: No Have you ever Combined Alcohol with any other Substance of Abuse during the last 90 days?: No Positive Blood Alcohol level on Presentation? [PCS.BAL]: No Evidence of Increased Autonomic Activity (i.e. HR>120, tremor, sweating, agitation, nausea)?: No Result: 0
[2022-03-25 22:06] LABS: Prothrombin Time 9.8 sec (9.3-11.0)
[2022-03-25 23:14] VITALS: BP 144/79; PULSE 78; RESP 16; TEMP 36.6; O2SAT 95
[2022-03-26] VITALS (16 sets, daily range): BP systolic 98–128; BP diastolic 56–78; PULSE 60–101; RESP 16–20; TEMP 35.7–37.1; O2SAT 94–98; BMI 21.9
[2022-03-26] MEDS: HYDROmorphone 2 MG/ML SYR 1 MG IVP (00:52)
[2022-03-26] MEDS: Normal Saline 1,000 ML 125 ML IV (00:55)
[2022-03-26] MEDS: Normal Saline Flush 10 ML SYR IVP ×2 (00:56→16:34)
[2022-03-26] MEDS: ACETAMINOPHEN 1,000 MG/100 ML BTL 400 MG IVPB (02:22)
[2022-03-26] MEDS: DOXYCYCLINE 100 MG in Normal Saline 100 ML IVPB ×2 (06:02→17:58)
[2022-03-26 06:12] LABS: HCT 34.9 % (36.0-46.0); HGB 11.1 g/dL (11.2-15.7); MCH 29.8 pg (27.0-33.0); MCHC 31.8 % (32.0-36.0); MCV 94 fL (80-95); MPV 9.9 fL (8.0-11.0); Platelet Count 177 10^3/uL (130-400); RBC 3.72 10^6/uL (3.93-5.22); RDW 13.6 % (11.7-14.6); RDW-SD 46.7 fL; WBC 6.78 10^3/uL (4.4-10.8)
--- NOTE | 2022-03-26 06:18 | W.ORTHOCONSU ---
Date of service: 03/26/22 History of Present Illness History of Present Illness Chief Complaint: Right Hip Pain Narrative: Chelsey is an active 66-year-old who fell yesterday. She fell onto her right side. She tried to get up and immediately fell once again going down a few stairs. She was unable to ambulate was brought into the emergency department. She was diagnosed with a femoral neck fracture on the right side. She has had persistent pain about the right hip. It is much better when she is not moving. She denies any radicular symptoms. She denies numbness or tingling. She also has been having a cough. His cough is been present for greater than week and a half. She has been COVID-19 tested twice which is negative. She denies any fevers. She denies any chest pain. She denies any shortness of breath. Her vital signs have been stable. There was concern about a lingular pneumonia seen on her x-ray. Consults Consult date: 03/25/22 Requesting physician: Flako Paz Consult Reason Right hip fracture Assessment and Plan Assessment and plan (1) Closed displaced fracture of right femoral neck: Status: Acute Assessment and plan: Chelsey is an active 66-year-old who suffered a femoral neck fracture on the right side. Given her age and active lifestyle the most definitive treatment would be a total hip replacement. Open reduction internal fixation has a significantly high failure rate especially given the orientation of the fracture, comminution, and her age. Hemiarthroplasty could also be considered but once again does has a limited life span given her active lifestyle and age, total replacement has greater longevity. I reviewed these treatment options with Chelsey. She agrees to proceed with hip replacement. I reviewed the risk of the procedure to include bleeding, infection, pain, stiffness, dislocation, length inequality, damage nerves and vessels, damage to muscle and tendons, blood clot, fracture, need for repeat procedures. Despite these risk, she elects to proceed. She has had this chronic cough with questionable pneumonia on the left lower lobe which would definitely increase her perioperative risk although I am uncertain what that number would be. Her symptoms have been stable and she is without systemic findings and she is COVID-19 negative. However, delaying treatment of the hip fracture also has increasing comorbidity. Resume anticoagulation this evening. After surgery she will be weightbearing as tolerated without restrictions. Review of Systems All systems reviewed & are unremarkable except as noted in HPI and below PFSH All Active Problems Sacral fracture, closed (Acute) Closed displaced fracture of right femoral neck (Acute) Pneumonia (Acute) Weight loss observed on examination (Acute) COVID-19 (Acute) Tested + 12/31/21, no work secondary to continued symptoms. No antivirals. Rapid in office test NEG for Influenza & Covid today. Family history of colon cancer (Acute 03/17/17) Mother Dx at 77 Osteopenia after menopause (Acute ~01/07/22) Medical History History of COVID-19 Family History Mother , 80 Disorder of thyroid gland Personal history of malignant neoplasm COLON Father , 52 Heart disease Son Thyroid cancer Sister No problems noted. Sister No problems noted. Sister No problems noted. Brother , 48 No problems noted. Brother , 50 Alcohol use disorder Diabetes Brother No problems noted. Brother No problems noted. 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 [employer] Pets and animals: Yes Pets and animals: cat(s) Sexually active: Yes Do you think of yourself as: straight/heterosexual Current gender identity: female What is your relationship status?: How often do you talk on the phone with friends or family?: once per week How often do you get together with friends or relatives?: once per week How often do you attend buddhism or caodaism services?: decline to answer Do you belong to any clubs or organized social groups?: no Panel score (0-1 are the most socially isolated patients): 1 What type of physical activity do you participate in: walking Duration: 30-45 minutes/day Frequency: 1-2 times per week Coretta/Mandaen: Adventism Special coretta needs: No Seatbelt use: always Helmet use: Yes Helmet use: always Drive intox or ride w/intox public transit bus driver: No Do you feel safe at home: Yes Do you feel safe in your relationship?: Yes Additional Social history: Enjoys camping, gardening, spending time with family / friends. Exam Const General: cooperative, healthy appearing, comfortable and no acute distress Extrem Other: Evaluation of the right lower extremity shows a shortened externally rotated limb. There is no overlying skin changes. No defects of the skin. No significant swelling. Pain to palpation about the right hip, range of motion not tested. No pain to palpation of the knee or the lower leg. Pelvic compression does not seem to increase pain. Sensation intact light touch over the deep and superficial peroneal nerve and tibial nerve. Palpable DP and PT pulse. Results Last Vital Signs Temp 36.1 C L 03/26/22 03:26 Pulse 76 03/26/22 03:26 Resp 19 03/26/22 03:26 BP 103/56 L 03/26/22 03:26 Pulse Ox 95 03/26/22 03:26 Labs Result diagrams: 03/26/22 05:20 03/25/22 17:13 Labs: Laboratory Results - last 24 hr 03/25/22 03/25/22 03/25/22 17:13 17:13 17:13 WBC 7.69 RBC 4.17 Hgb 12.3 Hct 38.7 MCV 93 MCH 29.5 MCHC 31.8 L RDW 13.6 Plt Count 183 MPV 9.5 Immature Gran % 0.5 Neutrophils % 67.7 Lymphocytes % 20.5 Monocytes % 9.9 Eosinophils % 1.0 Basophils % 0.4 Nucleated RBC % 0.0 Absolute Neutrophils 5.20 Absolute Lymphocytes 1.58 Absolute Monocytes 0.76 Absolute Eosinophils 0.08 Absolute Basophils 0.03 PT INR Sodium 135 L Potassium 4.1 Chloride 100 Carbon Dioxide 28.5 Anion Gap 6.5 BUN 11 Creatinine 0.8 Est GFR (CKD-EPI 2020) 80.71 Glucose 112 H Calcium 9.0 COVID-19 Source SARS-CoV-2 (PCR) Patient ABO/Rh B Positive Antibody Screen NEGATIVE 03/25/22 03/25/22 03/26/22 17:13 18:38 05:20 WBC 6.78 RBC 3.72 L Hgb 11.1 L Hct 34.9 L MCV 94 MCH 29.8 MCHC 31.8 L RDW 13.6 Plt Count 177 MPV 9.9 Immature Gran % Neutrophils % Lymphocytes % Monocytes % Eosinophils % Basophils % Nucleated RBC % Absolute Neutrophils Absolute Lymphocytes Absolute Monocytes Absolute Eosinophils Absolute Basophils PT 9.8 INR 1.0 Sodium Potassium Chloride Carbon Dioxide Anion Gap BUN Creatinine Est GFR (CKD-EPI 2020) Glucose Calcium COVID-19 Source Nasal/Nares SARS-CoV-2 (PCR) Negative Patient ABO/Rh Antibody Screen Imaging Imaging Studies: X-ray of the right femur and pelvis demonstrates a femoral neck fracture. It was unclear at the exact level of the femoral neck fracture persisted and if there is any trochanteric extension. Radiology read mentioned a sacral ala fracture on the right side although I do not quite see that. A repeat pelvis x-ray was also performed for surgical planning which once again shows no proximal femur extension. CT scan of the right femur was obtained which demonstrates a vertically oriented femoral neck fracture with some comminution. No extension into the greater trochanter. No apparent pelvic fracture. The sacral ala is not fully captured on this CT scan but what is visualized does not show fracture. There does appear to be some arthritis about the SI joint.
[2022-03-26 06:37] LABS: ALT 37 U/L (14-59); AST 26 U/L (15-37); Albumin 2.8 g/dL (3.4-5.0); Alkaline Phosphatase 311 U/L (46-116); Anion Gap 5.5 mmol/L (3-11); BUN 9 mg/dL (7-18); Bilirubin, Total 0.7 mg/dL (0.2-1.0); CO2 27.5 mmol/L (21.0-32.0); CREATININE 0.8 mg/dL (0.55-1.02); Calcium 8.5 mg/dL (8.5-10.1); Chloride 102 mmol/L (98-107); Estimated GFR 80.71 (mL/min/1.73m2); Glucose 93 mg/dL (74-106); Potassium 4.2 mmol/L (3.5-5.1); Sodium 135 mmol/L (136-145); Total Protein 7.3 g/dL (6.4-8.2)
--- NOTE | 2022-03-26 07:15 | DI.RAD_ITS ---
Exam(s) XR HIP RT IN OR EXAM: XR HIP RT IN OR CLINICAL HISTORY: Closed displaced fracture of right femoral neck. TECHNIQUE: 2D and realtime digital imaging was performed. COMPARISON: No exams were available for comparison FINDINGS: Fluoroscopy was provided in the OR. Hard copy image shows placement of the left hip prosthesis. Please see procedure note for details. Fluoro time: 32.2seconds RADIATION DOSE DELIVERED: Ka,r=3.25 mGy
--- NOTE | 2022-03-26 07:35 | ANES.PREOP_ITS ---
General Info Date of Service Date Performed: 03/26/22 Height: 5 ft 10 in Weight: 69.541 kg Body Mass Index (BMI): 21.9 Surgical Procedure: Operation Date: 03/26/22 06:55 Proposed Procedure Side Surgeon p Hip Total Hip Anterior Right Giovanni Ramos MD Meds Allergies and Home Medications Allergies Allergy/AdvReac Type Severity Reaction Status Date / Time No Known Drug Allergies Allergy Verified 03/25/22 16:53 Home Medication Medication Instructions Recorded lysine 1,000 mg tablet 1,000 mg PO PRN 12/22/15 estradiol 10 mcg vaginal tablet 10 mcg vaginal DAILY 2 weeks #24 06/17/21 (Vagifem) tabs Current Visit Medications: Current Medications Generic Name Dose Route Start Last Admin Trade Name Freq PRN Reason Stop Dose Admin Acetaminophen 0 mg 03/25/22 21:16 Acetaminophen 325 Mg Tab PO Q4H PRN PRN Al Hydrox/Mg Hydrox/Simethicone 30 ml 03/25/22 21:16 Mylanta Suspension 30 Ml Cup PO Q2H PRN PRN Dimethicone/Zinc Oxide 0 gm 03/25/22 21:11 Yoli Protect Cream 142 Gm Tube TP PRN PRN Docusate Sodium 100 mg 03/25/22 21:16 Docusate Sodium 100 Mg Cap PO TID PRN PRN Hydromorphone HCl 1 mg 03/26/22 00:32 03/26/22 00:52 Hydromorphone 2 Mg/Ml Syr IVP 1 meq Q2H PRN PRN Administration Sodium Chloride 500 mls @ 0 mls/hr 03/25/22 17:02 Saline 500ml Bag IV PRN PRN As Directed Cefazolin Sodium/Dextrose 2 gm in 50 mls @ 100 mls/hr 03/26/22 08:00 Ancef Duplex IVPB PREOP JOYCE Sodium Chloride 1,000 mls @ 125 mls/hr 03/26/22 02:00 03/26/22 00:55 Saline 1000ml Bag IV 125 mls/hr INFUSION JOYCE Administration Acetaminophen 1,000 mg in 100 mls @ 400 mls/hr 03/26/22 02:00 03/26/22 02:22 Ofirmev IVPB 400 mls/hr Q6H JOYCE Administration Doxycycline Hyclate 100 mg/ 100 mls @ 100 mls/hr 03/26/22 06:00 03/26/22 06:02 Sodium Chloride IVPB 100 mls/hr Q12H JOYCE Administration Ceftriaxone Sodium/Dextrose 1 gm in 50 mls @ 100 mls/hr 03/26/22 18:00 Rocephin IVPB Q24H JOYCE Tranexamic Acid 1,000 mg/ 60 mls @ 360 mls/hr 03/26/22 07:10 Sodium Chloride IVPB 03/26/22 07:19 PREOP STA Cefazolin Sodium/Dextrose 2 gm in 50 mls @ 100 mls/hr 03/26/22 07:15 Ancef Duplex IVPB PREOP JOYCE IV Miscellaneous Supplies 1 each 03/25/22 17:15 Iv Access IV DIRECTED JOYCE Magnesium Hydroxide 30 ml 03/25/22 21:16 Milk Of Magnesia 30 Ml Cup PO DAILY PRN PRN Polyethylene Glycol 17 gm 03/25/22 21:16 Polyethylene Glycol 3350 17 Gm Packet PO DAILY PRN PRN Constipation Sodium Chloride 0 ml 03/25/22 17:02 03/26/22 00:56 Normal Saline Flush 10 Ml Syr IVP 10 ml PRN PRN Administration PFSH Active Problems Active Problems: Problem Status Onset Code Sacral fracture, closed S32.10XA Closed displaced fracture of right femoral neck S72.001A Pneumonia J18.9 Weight loss observed on examination R63.4 COVID-19 U07.1 Family history of colon cancer 03/17/17 Z80.0 Osteopenia after menopause ~01/07/22 M85.80, Z78.0 Medical History Medical History History of COVID-19 Tobacco Smoking/Tobacco Use Status: Former Tobacco Use Second hand exposure: Yes Alcohol Alcohol Intake: current Alcohol intake frequency: a few times a month Alcohol type: wine and hard liquor Substance Use Substance use: Never Substance use type: does not use Vital Signs and Lab Results Vital Signs Most Recent Vital Signs in EMR: Most Recent Vital Signs Temp Pulse Resp BP Pulse Ox 36.8 C 76 18 116/69 96 03/26/22 06:59 03/26/22 06:59 03/26/22 06:59 03/26/22 06:59 03/26/22 06:59 Lab Results Result Diagrams: 03/26/22 05:20 03/26/22 05:20 Blood Type / Crossmatch: Patient ABO/Rh B Positive 03/25/22 Antibody Screen NEGATIVE 03/25/22 Complete Blood Count: White Blood Count 6.78 10^3/uL (4.4-10.8) 03/26/22 05:20 Red Blood Count 3.72 10^6/uL (3.93-5.22) L 03/26/22 05:20 Hemoglobin 11.1 g/dL (11.2-15.7) L 03/26/22 05:20 Hematocrit 34.9 % (36.0-46.0) L 03/26/22 05:20 Platelet Count 177 10^3/uL (130-400) 03/26/22 05:20 Complete Metabolic Panel: Sodium 135 mmol/L (136-145) L 03/26/22 05:20 Potassium 4.2 mmol/L (3.5-5.1) 03/26/22 05:20 Chloride 102 mmol/L (98-107) 03/26/22 05:20 Carbon Dioxide 27.5 mmol/L (21.0-32.0) 03/26/22 05:20 BUN 9 mg/dL (7-18) 03/26/22 05:20 Creatinine 0.8 mg/dL (0.55-1.02) 03/26/22 05:20 Est GFR (CKD-EPI 2020) 80.71 (mL/min/1.73m2) 03/26/22 05:20 Magnesium 2.0 mg/dL (1.8-2.4) 03/26/22 05:20 Calcium 8.5 mg/dL (8.5-10.1) 03/26/22 05:20 Albumin 2.8 g/dL (3.4-5.0) L 03/26/22 05:20 Glucose 93 mg/dL (74-106) 03/26/22 05:20 Liver Function Panel: Alanine Aminotransferase (ALT/SGPT) 37 U/L (14-59) 03/26/22 05: 20 Aspartate Amino Transf (AST/SGOT) 26 U/L (15-37) 03/26/22 05:20 Coagulation Panel: INR International Normalized Ratio 1.0 (0.9-1.1) 03/25/22 17:1 3 Prothrombin Time 9.8 sec (9.3-11.0) 03/25/22 17:13 Cardiac Panel: No Data to Display Arterial Blood Gas: No Data to Display Venous Blood Gas: No Data to Display Pancreas Panel: No Data to Display Thyroid Panel: No Data to Display Infectious Disease: Coronavirus (COVID-19)(PCR) Negative (Negative) 03/25/22 18:38 Coronavirus 2019 Source Nasal/Nares 03/25/22 18:38 Blood Cultures: No Data to Display Toxicology Panel: No Data to Display Imaging and Studies Imaging and Studies Study information below may be from another EMR and interpreted by another jewels hyatt. Please see original notes in EMR for more complete details. EKG Summary: 03/25/2022: Conclusion Sinus rhythm...normal P axis, V-rate 60- 99 Low voltage, extremity leads...all extremity leads <0.5mV Anesthesia Assessment and Plan Anesthesia History Personal History: PONV Family History: No Family History of Anesthesia Complications Exercise Tolerance Exercise Tolerance: Metabolic Equivalents>4 Pertinent Negatives Pertinent Negatives: No Symptoms of GERD, No Major Cardiovascular Symptoms or Complaints and No Major Pulmonary Symptoms or Complaints Cardiac & Pulmonary Exam Cardiac Exam: Normal S1/S2 Heart Sounds Pulmonary Exam: Clear Bilateral Breath Sounds Implantable Cardiac Device Does patient have a Pacemaker or an ICD?: No Airway Exam Known Difficult Airway: No Mallampati Class: 1 Mouth Opening: Normal (> 3cm) Thyromental Distance: Greater than 3 cm Neck Range of Motion: Full ROM Neck Circumference: Normal Teeth Condition: Removable Dentures/Plates Upper and Removable Dentures/Plates Lower ASA Classification ASA Score: ASA 2 Emergency Case?: No NPO Status NPO Status: NPO Clears >2 hours, Solids >8 hours Anesthesia Plan Resuscitation Status: Full Code Anesthesia Technique: Spinal Anesthesia Airway Planned: Natural Airway Monitors Used: Standard Monitors
[2022-03-26] MEDS: Lactated Ringers 1,000 ML 80 ML IV (08:20)
[2022-03-26] MEDS: ceFAZolin 2 GM/50 ML BAG IVPB (08:45)
--- NOTE | 2022-03-26 10:02 | W.PM.OP ---
Date of service: 03/26/22 Time of Service: 10:02 Operative Note Operative Note DATE OF PROCEDURE: 03/26/22 PRE-OP DIAGNOSIS: Right Femoral Neck Fracture POST-OP DIAGNOSIS: same PROCEDURE: Right Anterior Total Hip Dual Mobility Arthroplasty with Intraoperative Navigation SURGEON: Giovanni Ramos DOCUMENTATION LEAD: Jessica Deleon ANESTHESIA TYPE: Spinal Refer to Anesthesia Record ESTIMATED BLOOD LOSS: 200 PATHOLOGY: none sent TOURNIQUET TIME: 0 COMPLICATIONS: None Patient was transported to: PACU Patient's condition: stable Implants: 1. Depuy Bimentum Acetabular Component, 53mm 2. Depuy Bimentum Dual Mobility Liner, [id number] 3. Depuy Corail Standard Collared Femoral Stem, Size 14 4. Depuy Altrx Ceramic Femoral Head, Size 28+1.5mm Indications: I saw Chelsey in the hospital for a right femoral neck fracture. Given the displaced nature of the fracture and her age I had recommended a hip replacement for its treatment. I explained the risks of the procedure to include, but not limited to, bleeding, infection, pain, stiffness, fracture, damage to nerves and vessels, damage to muscles and tendons, loosening, instability, leg length inequality, need for repeat procedure, blood clot and cardiopulmonary demise. Despite these risks, Chelsey elected to proceed. Findings: There was a comminuted and displaced fracture through the femoral neck and a very vertical orientation. There was some earlier in the acetabulum noted as well. A dual mobility construct was implanted. Procedure Description: Chelsey was greeted in the preoperative holding area where the correct side was identified and marked. The consent was reviewed with the patient and signed. The history and physical was updated. All questions were answered. SHe was taken back to the operating room. A spinal anesthestic was then attempted but unsuccessful. Therefore, general anesthesia was administered. The feet were wrapped with cast padding and Coban and then placed into the boot liners and then into the boots. Care was taken to protect the skin and make sure the heels were fully down and the boots were stable. The patient was then positioned onto the HANA table. Both legs were held in a neutral position. SCDs were applied. The patient was then slid down onto a peroneal post. Prophylactic antibiotics in the form of Cefazolin were administered. 1g of Tranxemic Acid was given intravenously within 30 minutes of incision. The right leg was then prepped with Chloraprep and draped in a standard fashion. A second prep with Chloraprep was performed prior to placement of a shower-curtain type drape with Iodine impregnated skin protection. A timeout to confirm correct identity, side and site, procedure, allergies, anesthesia, and medical concerns was performed. An obliquely oriented incision was made starting lateral to the ASIS and running distal over the Tensor Fascia Pamela (TFL) muscle belly toward the fibular head, approximately 10cm. The skin and soft tissue was dissected sharply, through Guerrero?s fascia, and to the fascia of the TFL. With the fascia and superior border of the IT band identified, the fascia was incised with a new knife just above any perforators from the IT band. The TFL muscle belly was bluntly dissected away from the fascia and moved laterally. The fat between TFL and rectus was identified to ensure the dissection was not within the TFL. Blunt dissection created space between abductors and the capsule and retractor was placed over the lateral femoral neck. The fibers of the rectus femoris tendon were identified and these were freed from the anterior capsule. A second cobra retractor was placed around the medial femoral neck. The TFL was further retracted laterally to show the deep fascia. Careful dissection through this layer identified three main crossing vessels of the lateral femoral circumflex. These were cauterized in multiple locations and then cut without any noticeable bleeding. The TFL was further released bluntly from the deep fascia to expose anterior hip capsule and fat The Kapil orthopaedic retractor was then placed beneath the TFL and against sartorius and medial soft tissues to protect and retract the soft tissues. A T-capsulotomy was then performed starting at the superior lateral acetabulum and moving distally to the intertrochanteric ridge. Fracture hematoma was evacuated. These capsular flaps were tagged with a No. 1 Ethibond and elevated from within. The capsular flaps were released to the shoulder of the lateral neck and to the lesser trochanter to give excellent visualization of the proximal femur. The fracture had a significant vertical orientation with comminution medially. A neck osteotomy was performed using an oscillating saw based on preoperative templates, starting laterally at the shoulder and exiting at the level of the fracture. This cut started in the shoulder and of the lateral neck and exited medially. The saw was at all times directed medially to avoid injury to the greater trochanter. Gross traction was applied to the leg and the osteotomy opened. The intercalary osteotomy was removed. Then, the femoral head was removed with a corkscrew, making sure to protect the TFL on its exit. Traction was released after head removal. This was measured on the back table to determine the starting reamer size. Portions of the rectus obscuring visualization were minimally elevated off the superior acetabulum. An anterior retractor was placed over the anterior wall between capsule and labrum and attached to the Gripper retraction system. The femur was rotated to 90 degrees and medial capsule was fully released until the lesser trochanter was palpable and visible; the femur was returned to 30 degrees. A posterior retractor was placed similarly between capsule and labrum. This provided excellent visualization. The contents of the cotyloid fossa were removed with electrocautery and the labrum was removed with a knife. There was some early chondromalacia of the superior acetabulum. Acetabular reaming began with a 47mm reamer. This first reaming was directed anterior to posterior and medial to get down to the true floor. This was inspected and reamed until the true floor was reached. The anterior retractor was then released and entry and exit was provided by traction on the capsular flaps. I then reamed sequentially up to a 53mm reamer where good fit was obtained. The larger reamers were oriented based on anatomical reference of the anterior and lateral jorgensen to ensure proper abduction and anteversion. Positioning and size was confirmed with the fluoroscopy. A 53mm Depuy Bimentum acetabular component was selected. The deep tissues were irrigated. The acetabular component was then impacted in a position of about 40-45 degrees of abduction and 15-20 degrees of anteversion, using the patient?s anatomy as the ultimate landmark. Fluoroscopy was used to confirm this. There was excellent innersole maker of the acetabular component and the inserting handle was removed. A portion of the boni-articular cocktail was then injected around the acetabulum into the capsule and periosteum. This cocktail consisted of 123mg of Ropivacaine, 0.25mg of Epinephrine, 0.04mg of Clonidine, and 15mg of Ketorolac, diluted to 50cc. The leg was rotated to 120 degrees. Any remaining medial capsule was released until the lesser trochanter was easily palpable. A retractor was placed medially. The lateral capsule was further released into the shoulder to allow access to the greater trochanter. A Bobby retractor was placed over the greater trochanter which allowed the trochanter to flip in front of the capsule for excellent exposure. The leg was brought down into maximal extension and 20 degrees of adduction while ensuring there was no impingement on the acetabulum. Any remnant capsule within the trochanter was released. Piriformis and obturator externis were identified and protected. There was excellent access to the proximal femur. The lateral neck remnant was removed with a rongeur. A blunt canal probe was used to identify the canal and trajectory for later broaching. A box osteotome initiated the broach course. A small curved rasp and a curved curette were used to work laterally. Broaching then began with a size 8 Corail broach. This was inserted manually around the trochanter and into the canal before mallet blows. The broach was seated to the neck cut level based on the neck cut and the preoperative template. Sequential broaching was continued with the [place] pneumatic broaching device until a tight fit was obtained with good rotational control of the femur. A trial standard neck was inserted along with a +1.5 trial head inserted into the Bimentum dual mobility trial liner. The leg was brought out of extension and adduction and then reduced with traction and internal rotation. The leg was stable anteriorly in a position of 30 degrees of extension and 90 degrees of external rotation. Fluoroscopy was used to ensure there was no fracture and the stem was seated well. Leg lengths were checked with an AP pelvis and pelvic reference points. Time Bomb Deals navigation system was used to confirm appropriate positioning and leg length and offset. Once content with the desired offset and leg lengths, the leg was brought back into extension, external rotation and adduction. The periosteum and surrounding tissue was injected with remaining portion of the boni-articular cocktail. The proximal femur was irrigated as well as the deep tissues. The Depuy Corail standard collared stem, size 14, was then manually inserted into the proximal femur making sure to control rotation. It was then malleted into position with light blows, giving breaks to allow bone expansion and decrease risk of fracture. The selected Depuy Altrx Ceramic Head, size 28+1.5mm, was then placed into the Bimentum Dual Mobility liner, [id number]. This was then placed onto the clean and dry trunnion and secured with impaction onto the tapered fit. The leg was brought back out of extension and adduction and reduced with traction and internal rotation. Stability was confirmed with no shuck at 90 degrees of external rotation and 30 degrees of extension. No impingement through range of motion arc. Final x-ray images were obtained with fluoroscopy to confirm adequate positioning and no intraoperative fracture. The deep tissues were thoroughly irrigated with Surgiphor, betadine solution. This was allowed to sit in the wound for 3 minutes before being thoroughly irrigated out with normal saline. The capsule was then reapproximated with the previously placed Ethibond sutures. The TFL fascia was finally closed with a No. 2 Stratafix, barbed suture. Deep tissues were then reapproximated with 0 Vicryl and a running 2-0 Vicryl. The skin was closed with a running 4-0 Monocryl in a subcuticular fashion. This was reinforced with skin glue. A Mepilex silver dressing was applied. At the end of the case, all counts were correct. Chelsey was transferred to the hospital bed without difficulty and suffering no apparent complication. She has a good prognosis. Physical therapy will start today and without restrictions, weight-bearing as tolerated. DVT prophylaxis may start this evening with likely d/c on ASA 81mg BID.
--- NOTE | 2022-03-26 11:40 | W.PM.PROGNOT ---
Date of Service Date of service: 03/26/22 Time of Service: 11:40 Assessment and Plan Assessment and plan (1) Closed displaced fracture of right femoral neck: Status: Acute Assessment and plan: surgical repair day routine post operative care doing well pain management, bowel management, encourage amb. (2) Pneumonia: Status: Acute Assessment and plan: ceftriaxone and doxycycline day 2 pulmonary toileting incentive spirometry, acapella. oxygenating well on room air. Qualifiers: Lung location: middle lobe of lung Pneumonia type: due to unspecified organism (3) DVT prophylaxis: Status: Acute Assessment and plan: enoxaparin daily teds (4) Discharge planning issues: Status: Acute Assessment and plan: pt evaluation pending for discharge planning anticipate home with no services. discussed with DR Oh Subjective Subjective Patient reports: no new complaints, feels better, pain is less, tolerating liquids well, tolerating a regular diet and afebrile; denies shortness of breath Interval history since last seen: reambulated and doing well. minimal pain Exam Const General: cooperative, healthy appearing, comfortable and no acute distress Nutritional Appearance: thin Orientation: alert, awake and oriented x3 HENMT Head: normal to inspection, normocephalic and atraumatic Mouth: oral mucosae normal Resp Effort & Inspection: normal respiratory effort Cardio Rate: regular rate Rhythm: regular rhythm and other (good pedal pulses bilaterally) GI Inspection: normal to inspection Skin General skin exam: no rashes or lesions noted Lesions: other (surgical dressing clean dry and intact) Neuro General: patient alert, patient awake, patient oriented x3 and no focal motor deficits Motor: muscle tone normal throughout Extrem General: normal to inspection and no pedal edema Psych Appearance: grossly normal Mental Status: mental status grossly normal Speech and Movement: speech and movement normal Mood: congruent mood Affect: normal affect Attitude: cooperative Thought Process: normal Thought Content: normal Insight: insight good Judgment: judgment good Objective Last Vital Signs Temp 35.9 C L 03/26/22 11:36 Pulse 65 03/26/22 11:36 Resp 16 03/26/22 11:36 BP 120/69 03/26/22 11:36 Pulse Ox 95 03/26/22 11:36 Laboratory Results - last 24 hr 03/25/22 03/25/22 03/25/22 17:13 17:13 17:13 WBC 7.69 RBC 4.17 Hgb 12.3 Hct 38.7 MCV 93 MCH 29.5 MCHC 31.8 L RDW 13.6 Plt Count 183 MPV 9.5 Immature Gran % 0.5 Neutrophils % 67.7 Lymphocytes % 20.5 Monocytes % 9.9 Eosinophils % 1.0 Basophils % 0.4 Nucleated RBC % 0.0 Absolute Neutrophils 5.20 Absolute Lymphocytes 1.58 Absolute Monocytes 0.76 Absolute Eosinophils 0.08 Absolute Basophils 0.03 PT INR Sodium 135 L Potassium 4.1 Chloride 100 Carbon Dioxide 28.5 Anion Gap 6.5 BUN 11 Creatinine 0.8 Est GFR (CKD-EPI 2020) 80.71 Glucose 112 H Calcium 9.0 Magnesium Total Bilirubin AST ALT Alkaline Phosphatase Total Protein Albumin COVID-19 Source SARS-CoV-2 (PCR) Patient ABO/Rh B Positive Antibody Screen NEGATIVE 03/25/22 03/25/22 03/26/22 17:13 18:38 05:20 WBC RBC Hgb Hct MCV MCH MCHC RDW Plt Count MPV Immature Gran % Neutrophils % Lymphocytes % Monocytes % Eosinophils % Basophils % Nucleated RBC % Absolute Neutrophils Absolute Lymphocytes Absolute Monocytes Absolute Eosinophils Absolute Basophils PT 9.8 INR 1.0 Sodium 135 L Potassium 4.2 Chloride 102 Carbon Dioxide 27.5 Anion Gap 5.5 BUN 9 Creatinine 0.8 Est GFR (CKD-EPI 2020) 80.71 Glucose 93 Calcium 8.5 Magnesium 2.0 Total Bilirubin 0.7 AST 26 ALT 37 Alkaline Phosphatase 311 H Total Protein 7.3 Albumin 2.8 L COVID-19 Source Nasal/Nares SARS-CoV-2 (PCR) Negative Patient ABO/Rh Antibody Screen 03/26/22 05:20 WBC 6.78 RBC 3.72 L Hgb 11.1 L Hct 34.9 L MCV 94 MCH 29.8 MCHC 31.8 L RDW 13.6 Plt Count 177 MPV 9.9 Immature Gran % Neutrophils % Lymphocytes % Monocytes % Eosinophils % Basophils % Nucleated RBC % Absolute Neutrophils Absolute Lymphocytes Absolute Monocytes Absolute Eosinophils Absolute Basophils PT INR Sodium Potassium Chloride Carbon Dioxide Anion Gap BUN Creatinine Est GFR (CKD-EPI 2020) Glucose Calcium Magnesium Total Bilirubin AST ALT Alkaline Phosphatase Total Protein Albumin COVID-19 Source SARS-CoV-2 (PCR) Patient ABO/Rh Antibody Screen PAWSS Have you Been Recently Intoxicated or Drunk Within the Last 30 days?: No Have you Ever Experienced Previous Episodes of Alcohol Withdrawal?: No Have you ever Experienced Withdrawal Seizures?: No Have you ever Experienced Delirium Tremens(DT)s?: No Have you ever undergone Alcohol Rehabilitation Treatment (i.e, inpt ot outpatient treatment programs)?: No Have you ever Experienced Blackouts?: No Have you ever Combined Alcohol with other Downers within the last 90 days?: No Have you ever Combined Alcohol with any other Substance of Abuse during the last 90 days?: No Positive Blood Alcohol level on Presentation? [PCS.BAL]: No Evidence of Increased Autonomic Activity (i.e. HR>120, tremor, sweating, agitation, nausea)?: No Result: 0
--- NOTE | 2022-03-26 12:10 | INITIAL_ITS ---
- If Service Date Differs Date of service: 03/26/22 Time of Service: 12:10 Care Management Initial Assess REASON FOR HOSPITALIZATION:: Right hip fracture, Left lingular PNA PAST MEDICAL HISTORY/PAST SURGICAL HISTORY:: COVID-19 PREVIOUS FUNCTIONAL STATUS/SOCIAL/FAMILY SUPPORTS:: Resides in [place] with , Dilan. 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 CURRENT FUNCTIONAL STATUS:: Brought to OR today with Dr. Ramos for right femoral neck fracture fix; Right Anterior Total Hip Dual Mobility Arthroplasty with Intraoperative Navigation. Per MD: She has a good prognosis. Physical therapy will start today and without restrictions, weight-bearing as tolerated. DVT prophylaxis may start this evening with likely d/c on ASA 81mg BID. ADVANCE DIRECTIVES:: None on file. Has patient been provided with info about the portal/API?: Yes Did the patient sign up for the portal?: Yes CODE STATUS:: Full Code INSURANCE COVERAGE / FINANCIAL ISSUES:: [employer] CURRENT HOME/COMMUNITY SERVICES/EQUIPMENT:: None, currently. PRIMARY CARE PHYSICIAN:: Kate Goff POTENTIAL DISCHARGE NEEDS:: Evaluations for home services; PT consult anticipat ed. PATIENT/FAMILY EDUCATION NEEDS:: Review discharge instructions, discuss Ask Me Three. ANTICIPATED BARRIERS TO DISCHARGE:: None identified. TRANSPORTATION:: Via private vehicle with family. PLAN:: Anticipate Chelsey will return home when ready per MD. She will be evaluated by PT for need for VNA supports and DME equipment upon discharge. She will follow up with Ortho, her PCP and plan of care as prescribed and transport via private vehicle with her .
--- NOTE | 2022-03-26 12:59 | IN_ITS ---
Date of service: 03/26/22 PT Notes Visit Reasons: Right hip fracture, Left lingular PNA Inpatient Physical Therapy Evaluation Date: 03/26/22 Referring Doctor: Dr. Ramos PT Orders: PT CONSULT: femoral neck fx s/p right OLIMPIA Precautions: WBAT Patient Profile/Admitting Diagnosis: Patient presented to ER 03/25/22 after fall at home x 2. Found to have right femoral neck fx and underwent right OLIMPIA earlier today. She was also found to have a sacral ala fx, as well as minimally symptomatic pneumonia. PMHX: Sacral fracture, closed (Acute) Closed displaced fracture of right femoral neck (Acute) Pneumonia (Acute) Weight loss observed on examination (Acute) COVID-19 (Acute) Tested + 12/31/21, no work secondary to continued symptoms. No antivirals. Rapid in office test NEG for Influenza & Covid today.Family history of colon cancer (Acute 03/17/17) Mother? Dx at 77 Osteopenia after menopause (Acute ~01/07/22) Social History/Home Situation: Active and independent 66 year old female. 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. Lives in a single level home with her with 4 [address], single rail. Equipment Owned/DME: none Subjective: Chelsey states that she is ready to get up and try walking. She states that her pain has been under good control since her sugery. States that she feels so much better. Objective: General Observation: Resting in bed, IV in LUE. Mental Status: A&Ox3 Pain: well managed ROM: Right Upper Extremity: WNL Left Upper Extremity: WNL Right Lower Extremity: Hip motion assessed functionally, and shows at least 90* flexion, 0* extension. Left Lower Extremity: grossly WFL Sensation: intact at distal RLE Bed Mobility/Transfers: supine-sit: min A to RLE sit-stand: CGA stand-sit: CGA with cues for hand placement Gait: Ambulates 20'x2 with FWW, WBAT, CGA-supervision. Declined further ambulation due to fatigue. Stairs: Declines due to fatigue Balance: Static Sitting: normal Dynamic Sitting: normal Static Standing: good Dynamic Standing: fair Special Tests: Mobility Limitations Standardized Measure [facility] AM-PAC 6 clicks Basic Mobility Inpatient Short Form: Raw Score: 20 CMS Score: 36% impairment Informed Consent/Education: Patient instructed in purpose of PT consult and plan of care. She was instructed in seated exercises: Ankle Pumps x 1 minute Gluteal Sets x 1 minute LAQ x 1 minute Assessment: Patient is a 66 year old female referred to physical therapy services with the diagnosis of right femoral neck fx, s/p right OLIMPIA, post op day 0. Patient presents with clinical signs and symptoms consistent with post-op status. She requires FWW for ambulation, and will require issuance of FWW for home use to allow for safe household ambulation. She requires 1 additional session of skilled PT intervention for stair training, after which I anticipate she will be safe for return to community with assistance from family. She currently demonstrates the following impairment level findings: 1. decreased RLE strength, requiring min A for assistance to RLE during transfers 2. gait impairments Impairments are contributing to the following functional limitations: 1. gait impairments, with reliance on FWW for ambulation 2. decreased independence with bed mobility and transfers 3. unable to tolerate community distance ambulation Patient is assessed as a Low [id number] complexity based on the following: History: Active and independent 66 year old female presenting on post op day 0, s/p right OLIMPIA following femoral neck fx. Complicating factors include sacral fx, although pain is very well managed during today's session. Additional complication of pneumonia. Examination: functional limitations as noted above Presentation: stable Decision Making: low complexity Goals: Goals X1 week 1. Supine-Sit : supervision 2. Sit-Supine : supervision 3. Sit-Stand : supervision 4. Stand-Sit : supervision 5. Bed-Chair : supervision 6. Chair-Bed : supervision 7. Gait : supervision with FWW x 50' 8. Stairs : supervision with bilat UE support x 4 steps Plan of Care/Treatment Plan: 1-2x/day, 7 days/week x 1 week. Plan of care has been reviewed with the CARPENTER ASSISTANT providing the service under Physical Therapy direction. Initiate Physical Therapy intervention for strengthening, bed mobility, transfers, gait, stairs, balance training, use of assistive device. DISCHARGE RECOMMENDATIONS: Home with FWW (issued at time of service) TREATMENT CODE/TIME: 30223 (1:35-2:00) Lima Hicks, PT, DPT [facility]
[2022-03-26] MEDS: Ketorolac 15 MG/ML VIAL IVP ×2 (16:33→22:31)
[2022-03-26] MEDS: cefTRIAXone 1 GM/50 ML BAG IVPB (20:20)
[2022-03-26] MEDS: Docusate Sodium 100 MG CAP PO (23:17)
[2022-03-27 03:18] VITALS: BP 116/68; PULSE 68; RESP 17; TEMP 37.1; O2SAT 95
[2022-03-27] MEDS: Ketorolac 15 MG/ML VIAL IVP (04:04)
[2022-03-27] MEDS: Normal Saline Flush 10 ML SYR IVP (04:06)
[2022-03-27 06:56] VITALS: BP 113/66; PULSE 71; RESP 19; TEMP 36.7; O2SAT 95
--- NOTE | 2022-03-27 07:45 | NUR.NOTE ---
Nursing Note: Doxycycline admin on 03/27/22 am 0600 dosing. Pt reported tenderness and burning when flushing IV with normal saline. I reported to the patient that I would be happy to assist in getting them a new iv to ensure their safety with administration of IV doxycycline. Pt reported to me that they would rather not have an IV stick. and wanted to wait for the day time MD. to clarify as to weather or not they need they IV doxycycline as the patient is under the impression they are discharging today. because of the patients reported pain with iv flushing, i did not think it was safe to peruse in administering doxycycline.
--- NOTE | 2022-03-27 09:51 | W.PM.DS.N ---
Date of service: 03/27/22 Time of Service: 09:52 DS: Diagnosis Discharge Diagnosis (1) Closed displaced fracture of right femoral neck: Status: Acute (2) Pneumonia: Status: Acute Discharge Plan Disposition Patient Disposition: Home Condition: Good Discharge Details Reason For Visit: Right hip fracture, Left lingular PNA Admit Date/Time: 03/25/22 21:11 Admit Provider: Flako Paz Attending Provider: Flako Paz Primary Care Provider: Kate Goff Hospital Course Hospital Course: She was on her [employer] driveway when she slipped and fell onto her right hip with difficulty bearing weight after that injury.? She went home and walked into her house with difficulty taking 1 step at a time.? She forgot her cell phone therefore was going back out of her house and with the forceps off of her deck she slipped falling onto her right hip again.? This time she could not bear weight at all.? With her first injury she was in significant pain but the second injury was more debilitating.? She was brought to the [facility] ED for evaluation and was found to have a femoral neck fracture of the right hip which was displaced along with a sacral fracture on further imaging which is not a surgical issue.?Orthopedics was consulted. She underwent an uneventful total hip replacement. Patient also has pneumonia which was treated, she was minimally symptomatic.? EKG was normal.? Lung findings were normal.? She was not hypoxic or tachypneic.?Patient had respiratory symptoms with cough and upper respiratory symptoms 2 weeks prior to admission which was slowly clearing with no fever and minimal symptoms presently though chest x-ray does show a left lingular infiltrate. She was treated with doxycycline and ceftriaxone.? She is not oxygen dependent and has no cough or fever on discharge. Incidentally noted she has lost 20 pounds in the recent past without explanation and this is being investigated further as an outpatient.?She is discharged to home, stable with remainder of doxycline course and outpatient physical therapy. ? ? Home Meds and New Rx's Prescriptions: New celecoxib 200 mg capsule 200 mg PO BID PRN (Reason: pain) Qty: 60 1RF aspirin 81 mg tablet,delayed release (DR/EC) 81 mg PO BID Qty: 60 0RF acetaminophen 500 mg tablet 1,000 mg PO Q8H PRN (Reason: pain) Qty: 90 3RF pantoprazole 40 mg tablet,delayed release (DR/EC) 40 mg PO DAILY Qty: 30 0RF oxycodone 5 mg tablet 5 mg PO Q4H Qty: 12 0RF doxycycline hyclate 100 mg capsule 100 mg PO BID 5 Days Qty: 10 0RF Continued estradiol [Vagifem] 10 mcg tablet 10 mcg VG DAILY 14 Days Qty: 24 5RF Rx Instructions: use one tab in vagina daily at bedtime for 2-3 weeks then twice weekly lysine 1,000 MG tablet 1,000 mg PO PRN Discharge Instructions Instructions: Doxycycline (By mouth), Community Acquired Pneumonia (DC) Additional Instructions: Dr. Ramos's Total Hip Discharge Instructions Activity: The most important activity is to walk. You should try to take short walks a few times a day. You have no restrictions on movement or positioning, but do not try to force what you do. You will find some stiffness and weakness with hip flexion (lifting your knee). Do not try to strengthen this too early, continue to practice walking and stairs and this will come. You will be limited by fatigue, but this will improve. - Outpatient physical therapy can be helpful to help return you to a normal gait and improve your flexibility and strength. This can start around 2 weeks. For some patients, it?s not necessary. Usually this is determined at the time of discharge or at the first post-operative visit. - You should wear the ELVIRA hose on both legs for 2 weeks. Dressing: Keep the surgical dressing in place for at least one week. After the first week it may be removed and replace with light gauze and tape or nothing. It may get wet after 3 days but avoid soaking the dressing. If it gets wet, just lightly pat dry. It is important to always keep some gauze between skin folds, especially when you are sitting. Spend some time with the wound exposed when you are lying flat as the incision does wrinkle onto itself. Medications: - You should take Tylenol and an anti-inflammatory Celebrex as your primary pain control medications. If the Celebrex is too expensive or not covered, please call the office for another alternative (Advil/Ibuprofen or Naproxen/Aleve). - You have been prescribed a stronger pain medication Oxycodone for breakthrough pain, take as needed as prescribed. - You have also been prescribed a stomach acid reduction agent Pantoprozole to help reduce stomach acid and reflux. - You will be taking Aspirin 81mg twice a day for DVT prevention unless instructed otherwise. - If you have constipation you should take Colace or Miralax (both [id number]). It takes most people 3-4 days to have a bowel movement. Follow-up: 2 weeks If you have any acute concerns or questions, please do not hesitate to contact the office at [phone]. You may contact Dr. Ramos with any questions after hours through the hospital at [phone] or on his cell phone at [phone]. Take doxycycline twice a day for 5 days. Take a probiotic. Stand Alone Forms: Nursing Discharge Form Referrals: MARY LOU Stevenson [OTHER] - (Post op fx hip. Please call Monday to make an appointment.) Kate Goff MD [Primary Care Provider] - (Please call Monday to make a follow up appointment for 1-2 weeks.) Giovanni Ramos MD [[facility] STAFF PHYSICIAN] - (Please call office Monday to make an appointment for 2 weeks.) Activity:: Activity as Tolerated Equipment/Supplies:: No Equipment Needed Diet:: As Tolerated Discharge Orders Discharge Orders: Discharge Order (Routine); Ordered 03/27/22 Ordered By: Luda Graham Discharge Data Discharge Date/Time-TO BE ENTERED AT DEPARTURE: 03/27/22 11:45 DS: Summary Time Spent with Patient providing and/or coordinating discharge services: Greater than 30 minutes Status at Discharge Functional status at discharge: uses cane/walker Overall status at discharge: patient is progressing back to baseline Mental Status: mental status grossly normal Speech and Movement: speech and movement normal Mood: congruent mood Affect: normal affect Exam Const General: cooperative, healthy appearing, comfortable and no acute distress Nutritional Appearance: thin Orientation: alert, awake and oriented x3 HENMT Head: normal to inspection, normocephalic and atraumatic Mouth: oral mucosae normal Resp Effort & Inspection: normal respiratory effort Cardio Rate: regular rate Rhythm: regular rhythm and other (good pedal pulses bilaterally) GI Inspection: normal to inspection Skin General skin exam: no rashes or lesions noted Lesions: other (surgical dressing clean dry and intact) Neuro General: patient alert, patient awake, patient oriented x3 and no focal motor deficits Motor: muscle tone normal throughout Extrem General: normal to inspection and no pedal edema Psych Appearance: grossly normal Mental Status: mental status grossly normal Speech and Movement: speech and movement normal Mood: congruent mood Affect: normal affect Attitude: cooperative Thought Process: normal Thought Content: normal Insight: insight good Judgment: judgment good DS: Data Vitals/I&O Vitals and I&O: Vital Signs Temperature 36.7 C 03/27/22 06:56 Temperature Source Tympanic 03/27/22 06:56 Pulse 71 03/27/22 06:56 Pulse Rhythm Regular 03/27/22 08:15 Respiratory Rate 19 03/27/22 06:56 Respiratory Effort 03/27/22 08:15 Respiratory Depth Normal 03/27/22 08:15 Respiratory Pattern Normal 03/27/22 08:15 Blood Pressure 113/66 03/27/22 06:56 Blood Pressure Position Sitting 03/25/22 16:48 Pulse Oximetry 95 03/27/22 06:56 Oxygen Delivery Method Room Air 03/27/22 06:56 Oxygen Flow Rate 0 03/27/22 06:56 Pain Level 0 03/27/22 03:18 Comment 03/26/22 11:59 Intake & Output 03/26/22 03/26/22 03/27/22 11:59 23:59 11:59 Intake Total 610 / 2517.333 1907.333 / 2517.333 Output Total 850 / 1900 1050 / 1900 Balance -240 / 617.333 857.333 / 617.333 Weight 69.541 kg 71.2 kg Intake: IV 610 / 2517.333 1907.333 / 2517.333 Oral 0 / 0 Output: Urine 650 / 1700 1050 / 1700 Emesis 0 / 0 Estimated Blood Loss 200 / 200 Other: Urine Color Yellow Yellow Yellow Urine Appearance Clear Clear Clear Urine Odor None None Comment toilet insert emptied at this time. Emesis Description None Voiding Methods Bedpan Toilet Data Completed and Pending Labs on day of discharge: Preliminary micro results at discharge 03/25/22 18:53 Blood Culture - Preliminary Blood NO GROWTH 24 HOURS 03/25/22 18:47 Blood Culture - Preliminary Blood NO GROWTH 24 HOURS PFSH All Active Problems (Updated 03/28/22 @ 00:08 by BKG DAEMON) Sacral fracture, closed (Acute) Closed displaced fracture of right femoral neck (Acute) Pneumonia (Acute) Weight loss observed on examination (Acute) COVID-19 (Acute) Tested + 12/31/21, no work secondary to continued symptoms. No antivirals. Rapid in office test NEG for Influenza & Covid today. Family history of colon cancer (Acute 03/17/17) Mother Dx at 77 Osteopenia after menopause (Acute ~01/07/22) Medical History History of COVID-19 Family History Mother , 80 Disorder of thyroid gland Personal history of malignant neoplasm COLON Father , 52 Heart disease Son Thyroid cancer Sister No problems noted. Sister No problems noted. Sister No problems noted. Brother , 48 No problems noted. Brother , 50 Alcohol use disorder Diabetes Brother No problems noted. Brother No problems noted. 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 [employer] Pets and animals: Yes Pets and animals: cat(s) Sexually active: Yes Do you think of yourself as: straight/heterosexual Current gender identity: female What is your relationship status?: How often do you talk on the phone with friends or family?: once per week How often do you get together with friends or relatives?: once per week How often do you attend restoration or zoroastrian services?: decline to answer Do you belong to any clubs or organized social groups?: no Panel score (0-1 are the most socially isolated patients): 1 What type of physical activity do you participate in: walking Duration: 30-45 minutes/day Frequency: 1-2 times per week Coretta/Scientologist: Confucianism Special coretta needs: No Seatbelt use: always Helmet use: Yes Helmet use: always Drive intox or ride w/intox contract driver: No Do you feel safe at home: Yes Do you feel safe in your relationship?: Yes Additional Social history: Enjoys camping, gardening, spending time with family / friends.
--- NOTE | 2022-03-27 10:27 | W.PM.PROGNOT ---
Date of Service Date of service: 03/27/22 Time of Service: 10: Assessment and Plan Assessment and plan (1) Closed displaced fracture of right femoral neck: Status: Acute Assessment and plan: 66-year-old female doing well postop day #1 status post right anterior total hip arthroplasty for displaced femoral neck fracture No significant complaints or concerns. Mild discomfort soreness about anterior thigh. Greatly improved compared to preop. Dressing clean dry intact mild lateral thigh numbness. Able to weight-bear and demonstrate good hip flexion, knee extension, and ankle range of motion. No signs of blood clot or infection. No foot drop. Reviewed Dr. Ramos's postoperative instructions. Discussed with hospitalist. Plan on discharge home today. Objective Last Vital Signs Temp 98.1 F 03/27/22 06:56 Pulse 71 03/27/22 06:56 Resp 19 03/27/22 06:56 BP 113/66 03/27/22 06:56 Pulse Ox 95 03/27/22 06:56 PAWSS Have you Been Recently Intoxicated or Drunk Within the Last 30 days?: No Have you Ever Experienced Previous Episodes of Alcohol Withdrawal?: No Have you ever Experienced Withdrawal Seizures?: No Have you ever Experienced Delirium Tremens(DT)s?: No Have you ever undergone Alcohol Rehabilitation Treatment (i.e, inpt ot outpatient treatment programs)?: No Have you ever Experienced Blackouts?: No Have you ever Combined Alcohol with other Downers within the last 90 days?: No Have you ever Combined Alcohol with any other Substance of Abuse during the last 90 days?: No Positive Blood Alcohol level on Presentation? [PCS.BAL]: No Evidence of Increased Autonomic Activity (i.e. HR>120, tremor, sweating, agitation, nausea)?: No Result: 0
[2022-03-27 11:00] VITALS: BP 121/74; PULSE 85; RESP 20; TEMP 37.3; O2SAT 96
[2022-03-27] MEDS: Acetaminophen 325 MG TAB PO (11:07)
[2022-03-27] MEDS: Doxycycline Hyclate 100 MG CAP PO (11:28)
--- NOTE | 2022-03-27 12:32 | PT.INTREAT ---
PT Notes Visit Reasons: Right hip fracture, Left lingular PNA Inpatient Physical Therapy Treatment Note [facility] Date: 03/27/22 SUBJECTIVE:Chelsey reports that she is hoping to go home today. She has been doing her HEP without any problems. OBJECTIVE: [] BED MOBILITY/TRANSFERS pt already sitting in chair Sit-stand: SBA Stand-sit: SBA ] GAIT Assistive Device: FWW Weight bearing: AT right Assist: SBA Distance: 300' THEREX: HEP of LAQ, GS and AP STAIRS:ascend and descend clinic steps using 2 rails and SBA. 3x4 and 2x6 steps x2 each. ASSESSMENT: tolerated session well. No c/o pain with ambulation or ex. Seems to have a good understanding of her ex. Has appropriate equipment for home. PLAN: d/c home with . TREATMENT CODE/TIME: 20 min [id number]
--- NOTE | 2022-03-27 12:54 | W.ANESPOSTOP ---
Postoperative Evaluation Date, Time and Location Date Performed: 03/26/22 Time Performed: 10:20 Patient Location: PACU Vital Signs Most Recent Imported Vital Signs: Most Recent Vital Signs Temp Pulse Resp BP Pulse Ox 37.3 C 85 20 121/74 96 03/27/22 11:00 03/27/22 11:00 03/27/22 11:00 03/27/22 11:00 03/27/22 11:00 Pain Score Most Recent Pain Score: Most Recent Pain Score Pain Level [Right Hip] 7 03/25/22 18:03 Pain Level 0 03/27/22 03:18 Assessment Mental Status: Arousable with meaningful communication Airway and Respiratory Function: Patent airway with normal (patient baseline) respiratory exam Cardiovascular Function: Hemodynamically Stable Hydration Status: Adequately Hydrated Nausea & Vomiting: No Nausea or Vomiting Pain: Pain is tolerable per patient Peripheral Nerve Block: Patient did not receive a nerve block
--- NOTE | 2022-03-27 16:35 | PDOC.CMDIS ---
- If Service Date Differs Date of service: 03/27/22 Time of Service: 16:35 LACE Index Scoring Tool - Questions: Length of Stay (in days): 2 Acuity (Admit via E.D.?): Yes E.D. Visits: 1 - Answers: Total Score: 6 Risk of Readmission: Low Risk Care Management Discharge Reason for Hospitalization: Right hip fracture, Left lingular PNA Discharge Plan: Chelsey will return home when ready per MD, with no additional services. She will follow up with Ortho, her PCP and plan of care as prescribed and transport via private vehicle with her . Patient/Family Education Needs: Review discharge instructions, discuss Ask Me Three.
--- NOTE | 2022-03-28 17:40 | PT.INDS ---
Date of service: 03/28/22 PT Notes Visit Reasons: Right hip fracture, Left lingular PNA Inpatient Physical Therapy Discharge Summary Date: 03/28/22 Dates of Service: 03/26/2022 and 03/27/2022 Referring Doctor:? Dr. Ramos PT Orders: PT CONSULT: femoral neck fx s/p right OLIMPIA Precautions: WBAT Patient Profile/Admitting Diagnosis:?? Patient presented to ER 03/25/22 after fall at home x 2. Found to have right femoral neck fx and underwent right OLIMPIA earlier today. She was also found to have a sacral ala fx, as well as minimally symptomatic pneumonia. PMHX: Sacral fracture, closed (Acute) Closed displaced fracture of right femoral neck (Acute) Pneumonia (Acute) Weight loss observed on examination (Acute) COVID-19 (Acute) Tested + 12/31/21, no work secondary to continued symptoms. No antivirals. Rapid in office test NEG for Influenza & Covid today.Family history of colon cancer (Acute 03/17/17) Mother? Dx at 77 Osteopenia after menopause (Acute ~01/07/22) Social History/Home Situation: Active and independent 66 year old female. 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 Lives in a single level home with her with 4 AURE[address], single rail. Equipment Owned/DME: None Subjective:? NT. See most recent WHEEL PRESS OPERATOR notes. Objective:? General Observation: NT. See most recent WHEEL PRESS OPERATOR notes. Mental Status: NT. See most recent WHEEL PRESS OPERATOR notes. Pain: NT. See most recent WHEEL PRESS OPERATOR notes. ROM: Right Upper Extremity: WNL Left Upper Extremity: WNL Right Lower Extremity: Hip motion assessed functionally, and shows at least 90* flexion, 0* extension. Left Lower Extremity: grossly WFL Sensation:?intact at distal RLE BED MOBILITY/TRANSFERS? pt already sitting in chair? Sit-stand: SBA ? Stand-sit: SBA ? GAIT? Assistive Device: FWW ? Weight bearing: AT right Assist: SBA? Distance:? 300' ? Balance:? Static Sitting: Normal Dynamic Sitting: Normal Static Standing: Good Dynamic Standing: Fair Assessment:?? Patient is a 66 year old female referred to physical therapy services with the diagnosis of right femoral neck fx, s/p right OLIMPIA, post op day 0.? Patient presents with clinical signs and symptoms consistent with post-op status. She requires FWW for ambulation, and will require issuance of FWW for home use to allow for safe household ambulation. She returned home with family support on 03/27/2022. Goals: Goals X1 week 1. Supine-Sit : supervision NOT MET 2. Sit-Supine : supervision NOT MET 3. Sit-Stand : supervision NOT MET 4. Stand-Sit : supervision NOT MET 5. Bed-Chair : supervision NOT MET 6. Chair-Bed : supervision NOT MET 7. Gait : supervision with FWW x 50' NOT MET NOT MET 8. Stairs : supervision with bilat UE support x 4 steps DISCHARGE RECOMMENDATIONS: Home with FWW (issued at time of service) TREATMENT CODE/TIME: NC Thank you for the opportunity to participate in the care of this patient. Geovanna Abreu PT, DPT, CLT [facility] [place], [place]
== END 2022-03-27 11:45 | disposition home or self-care (01) | DRG 956 ==
LOC: ER 21:33 → MS 22:22
PROVIDERS: Student in an Organized Health Care Education/Training Program; Admitting Provider Family Medicine; Emergency Provider Student in an Organized Health Care Education/Training Program; PCP Family Medicine; Visit Provider Family Medicine
PROC: 0SR904A Replacement of Right Hip Joint with Ceramic on Polyethylene Synthetic Substitute, Uncemented, Open Approach (ICD-10-PCS; CPT 27130; principal; 2022-03-26 06:55)
DX: S72.011A Unspecified intracapsular fracture of right femur, initial encounter for closed fracture (principal); S32.19XA Other fracture of sacrum, initial encounter for closed fracture; J18.9 Pneumonia, unspecified organism; R63.4 Abnormal weight loss; Z68.22 Body mass index [BMI] 22.0-22.9, adult; Z86.16 Personal history of COVID-19; Z87.891 Personal history of nicotine dependence; Z80.0 Family history of malignant neoplasm of digestive organs; W00.0XXA Fall on same level due to ice and snow, initial encounter; W10.9XXA Fall (on) (from) unspecified stairs and steps, initial encounter
CPT/HCPCS: 27130; 20985; 36410; 36415; 73552; 80048; 80053; 85027; 86850; 86900; 86901; 87040; 87635; 93005; 96365; 96375; 97161; 97530; 99285; 71045; 72170; 73501; 73700; 83735; 85025; 85610; 93010; 99222; 99232; 99239; J0131; J0690; J0696; J1100; J1170; J1885; J2250; J2405; J3010

== ENCOUNTER 2022-04-08 10:55 | Outpatient (CLI) | payer OTHER, SELFPAY ==
--- NOTE | 2022-04-08 09:30 | DI.RAD_ITS ---
Exam(s) XR HIP RT COMPLETE AP PELVIS EXAM: XR HIP RT COMPLETE AP PELVIS CLINICAL HISTORY: 1st post op R OLIMPIA. TECHNIQUE: 2D digital imaging was performed. Two images were obtained. AP pelvis and lateral hip vi ews were obtained. COMPARISON: CR XR PELVIS AP from 03/25/2022 XA XR HIP RT IN OR from 03/26/2022 FINDINGS: BONES: There are stable post operative changes present. No fracture or dislocation. JOINTS: The orthopedic hardware is in good position. No evidence of hardware loosening. SOFT TISSUE: Normal. IMPRESSION: Stable postoperative changes. DATA REPOSITORY: RADIATION DOSE DELIVERED:
== END 2022-04-08 10:56 | disposition home or self-care (01) ==
LOC: DIORS 10:56
PROVIDERS: PCP Family Medicine; Referring Provider Family Medicine; Visit Provider Physician Assistant
DX: Z96.641 Presence of right artificial hip joint (principal); Z47.1 Aftercare following joint replacement surgery
CPT/HCPCS: 73502

== ENCOUNTER 2022-12-06 01:59 | Outpatient (CLI) | payer OTHER, SELFPAY ==
--- NOTE | 2022-12-06 12:00 | DI.MAMMO_ITS ---
Exam(s) MAMMO SCREENING EXAM: MAMMO SCREENING CLINICAL HISTORY: screening TECHNIQUE: Bilateral full field digital CC and MLO mammographic images were obtained with 3D tomosyn thesis and utilizing computer aided detection (CAD). COMPARISON: Available for comparison. FINDINGS: Masses/Architectural Distortion: None seen. Microcalcifications: No suspicious pleomorphic-type are seen. Skin Thickening/Nipple Retraction: None. IMPRESSION: 1. No significant interval change with no specific features of malignancy noted. 2. Unless there is more urgent need, screening mammography is recommended, as per [employer] guidelines. BI-RADS Category 1 - Negative Breast Density - Category C - Heterogeneously dense Breast density category C or D implies that the patient has dense breast tissue. Dense breast tissue is very common and is not abnormal but dense breast tissue can make it harder to find cancer on a ma mmogram. Also, dense breast tissue may increase their breast cancer risk. This information about the result of the mammogram report was provided to the patient to raise their awareness. Use this report when you speak with the patient about their risks for breast cancer, which includes their family hist ory. At that time, you may recommend for more screening tests (Ultrasound or MRI) as they might be us eful based on their risk. A negative radiographic report should not delay biopsy if a dominant or clinically suspicious mass is present. Up to ten percent of cancers are not identified on mammography. A negative report may reinforce clinical impression. Adenosis and dense breasts may obscure an underlying neoplasm. False positive reports average 6 to 10%. Patient will receive a letter notifying them of these results.
== END 2022-12-06 02:19 ==
LOC: DI 02:00
PROVIDERS: PCP Family Medicine; Visit Provider Nurse Practitioner Women's Health
DX: Z12.31 Encounter for screening mammogram for malignant neoplasm of breast (principal)
CPT/HCPCS: 77063; 77067

== ENCOUNTER 2023-01-23 07:37 | Day surgery (SDC) | payer OTHER, SELFPAY ==
--- NOTE | 2023-01-22 21:20 | W.PM.DSUDISC ---
Date of service: 01/23/23 Time of Service: 10:02 Discharge Plan Disposition Patient Disposition: Home Condition: Good Discharge Details Reason For Visit: screening colonoscopy Attending Provider: Jae Baez Primary Care Provider: Kate Goff Home Meds and New Rx's Prescriptions: Continued estradiol [Vagifem] 10 mcg tablet 10 mcg VG DAILY 14 Days Qty: 24 5RF Rx Instructions: use one tab in vagina daily at bedtime for 2-3 weeks then twice weekly lysine 1,000 MG tablet 1,000 mg PO PRN Discharge Instructions Instructions: Colorectal Polyps (GEN) Additional Instructions: Marcie, we were able to finish your colonoscopy today without any difficulty. I did find a total of 3 polyps. I removed these all completely. It will take about a week or 2 for me to get the results on the nature of the polyps, and I will be in touch at that point with any other recommendations. If you have any questions in the meantime, please do not hesitate to call. 1. If tolerated, consume a soft, low fiber diet for 1-2 days. 2[address] Do not drive, drink alcohol, operate machinery, make critical decisions, or do activities that require coordination or balance for 24 hours. 3. Because air was put into your colon during the procedure, expelling air from your rectum (passing gas or farting) is normal. 4. You may not have a bowel movement for 1-3 days because of the colonoscopy prep. This is normal. 5. Go directly to the emergency room if you notice any of the following: Develop chills (warm to touch), or if you have a thermometer and your temperature is above 101 Difficulty breathing or difficultly swallowing Persistent vomiting Severe abdominal pain, other than gas cramps Severe chest pain Black, tarry stools Any bleeding ? exceeding one tablespoon 6. Call your physician if the site where your intravenous was started becomes red, swollen, painful, and warm to touch. 7. Your physician has reviewed your pre-procedure medications. Please continue to take those medications as previously ordered. You will be given specific information/education regarding any changes to your medications before leaving. Activity:: Activity as Tolerated Diet:: As Tolerated Discharge Orders Discharge Orders: Discharge Order (Routine); Ordered 01/22/23 Ordered By: Jae Baez DS: Diagnosis Discharge Diagnosis (1) Screen for colon cancer: Status: Acute Asessment and Plan: Follow-up on polypectomy results
--- NOTE | 2023-01-22 21:21 | W.COLOREPORT ---
Date of service: 01/23/23 Time of Service: 10:03 Colonoscopy Report Date of procedure: 01/23/23 Pre-op diagnosis general: screening colonoscopy Post-op diagnosis procedure note: other (Colorectal polyps) Procedure: Colonoscopy with polypectomy Surgeon: Jae Baez Anesthesia Type: General:No Airway Estimated blood loss (mL): 5 Pathology: other (Rectal polyps x2, colon polyp at 35 cm) Complications: None Disposition: same day Indications: Chelsey is a 67 year old woman who needs another colonoscopy Prep: Miralax/Dulcolax Procedure Start Time: : Procedure End Time: :51 Retraction Time: 18 Findings: Rectal polyps x2, colon polyp at 35 cm Procedure Description: After the induction of monitored anesthetic care, and with the patient in left lateral decubitus position, I began by performing an external anorectal exam.? Perineum and skin were normal, as was the anal verge.? There was no not evidence of external hemorrhoids.? Next, I performed a digital rectal exam.? I did appreciate any abnormal findings.? Next, I advanced a colonoscope into the rectal vault.? There were 2 rectal polyps. Each was less than 0.25 cm. Each was sessile. I removed both of these with cold forceps polypectomy I performed retroflexion.? This appeared normal.? Using insufflation, I then advanced the colonoscope beyond the rectal folds and into the sigmoid colon before advancing towards the cecum.? The quality of the prep was excellent.? The scope was noted to be in the cecum by identification of the ileocecal valve and appendiceal orifice.? I then began withdrawing the colonoscope using repeated irrigation as necessary for full evaluation of the colonic mucosa. Around 35 cm from the anal verge I identified a 0.5 cm polyp. ?It appeared sessile in character. ?I was able to remove this with a cold forceps. ?I examined the site, and there was minimal bleeding. ?Once this was completed, I continued to withdraw the scope and examine the remainder of the colonic mucosa.?Once the scope was withdrawn to the level of the rectum, great care was taken to examine portions of the rectal folds.? Finally, the scope was withdrawn and the patient was brought to the same-day surgery recovery unit as the anesthetic wore off. ?The findings and instructions were shared with the patient prior to discharge.
[2023-01-23 08:00] VITALS: BP 125/75; PULSE 74; RESP 16; TEMP 36.3; O2SAT 97
[2023-01-23] MEDS: Lactated Ringers 1,000 ML 80 ML IV (08:45)
--- NOTE | 2023-01-23 09:07 | W.ANESPRE ---
General Info Date of Service Date Performed: 01/23/23 Height: 5 ft 10 in Weight: 67.8 kg Body Mass Index (BMI): 21.4 Surgical Procedure: Operation Date: 01/23/23 09:05 Proposed Procedure Side Surgeon p Colonoscopy Jae Baez MD Pre-Op Diagnosis Post-Op Diagnosis screening colonoscopy Meds Allergies and Home Medications Allergies Allergy/AdvReac Type Severity Reaction Status Date / Time No Known Drug Allergies Allergy Verified 01/23/23 08:16 Home Medication Medication Instructions Recorded lysine 1,000 mg tablet 1,000 mg PO PRN 12/22/15 estradiol 10 mcg vaginal tablet 10 mcg vaginal DAILY 2 weeks #24 11/14/22 (Vagifem) tabs Current Visit Medications: Current Medications Generic Name Dose Route Start Last Admin Trade Name Parkerq PRN Reason Stop Dose Admin Hyoscyamine Sulfate 0.125 mg 01/22/23 21:23 Hyoscyamine 0.125 Mg Sl/Oral/Chew SL 02/21/23 21:22 DIRECTED PRN Ringer's Solution 1,000 mls @ 80 mls/hr 01/23/23 06:00 01/23/23 08:45 IV 02/19/23 23:59 80 mls/hr INFUSION JOYCE Administration IV Miscellaneous Supplies 1 each 01/23/23 06:00 Iv Access IV 02/19/23 23:59 DIRECTED JOYCE Ondansetron HCl 4 mg 01/22/23 21:23 Ondansetron 4 Mg/2 Ml Vial IVP 02/21/23 21:22 Q4H PRN PRN Nausea / Vomiting Sodium Chloride 0 ml 01/23/23 06:00 Normal Saline Flush 10 Ml Syr IV 02/19/23 23:59 PRN PRN Sodium Chloride 0 ml 01/23/23 06:00 Normal Saline 10 Ml Vial IJ 02/19/23 23:59 DIRECTED PRN Sterile Water 0 ml 01/23/23 06:00 Water,Injection,Sterile 10 Ml Vial IJ 02/19/23 23:59 DIRECTED PRN PFSH Active Problems Active Problems: Problem Status Onset Code Screen for colon cancer Z12.11 Family history of colon cancer 03/17/17 Z80.0 Osteopenia after menopause ~01/07/22 M85.80, Z78.0 Anxiety disorder F41.9 Persaud hemangioma D18.01 Vaginal atrophy N95.2 Medical History Medical History Hepatitis C antibody positive in blood (~09/2021) HCV RNA negative History of COVID-19 Sacral fracture, closed Surgical History Surgical History History of colonoscopy 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) Tobacco Smoking/Tobacco Use Status: Former Tobacco Use Smokeless tobacco user: other Passive smoking exposure: Yes Second hand exposure: Yes Alcohol Alcohol Intake: current Alcohol intake frequency: a few times a month Alcohol type: wine and hard liquor Substance Use Substance use: Never Substance use type: does not use Prental History History 1 Para 1 Hx # Term Pregnancies Multiple births Hx # Pregnancies Ectopic pregnancies AB induced Hx Number of Living Children AB spontaneous Vital Signs and Lab Results Vital Signs Most Recent Vital Signs in EMR: Most Recent Vital Signs Temp Pulse Resp BP Pulse Ox 36.3 C L 74 16 125/75 97 01/23/23 08:00 01/23/23 08:00 01/23/23 08:00 01/23/23 08:00 01/23/23 08:00 Lab Results Blood Type / Crossmatch: No Data to Display Complete Blood Count: No Data to Display Complete Metabolic Panel: No Data to Display Liver Function Panel: No Data to Display Coagulation Panel: No Data to Display Cardiac Panel: No Data to Display Arterial Blood Gas: No Data to Display Venous Blood Gas: No Data to Display Pancreas Panel: No Data to Display Thyroid Panel: No Data to Display Infectious Disease: No Data to Display Blood Cultures: No Data to Display Toxicology Panel: No Data to Display Imaging and Studies Imaging and Studies Study information below may be from another EMR and interpreted by another provider. Please see original notes in EMR for more complete details. EKG Summary: 03/25/2022: Conclusion Sinus rhythm...normal P axis, V-rate 60- 99 Low voltage, extremity leads...all extremity leads <0.5mV Anesthesia Assessment and Plan Anesthesia History Personal History: PONV Family History: No Family History of Anesthesia Complications Exercise Tolerance Exercise Tolerance: Metabolic Equivalents>4 Pertinent Negatives Pertinent Negatives: No Symptoms of GERD, No Major Cardiovascular Symptoms or Complaints and No Major Pulmonary Symptoms or Complaints Cardiac & Pulmonary Exam Cardiac Exam: Normal S1/S2 Heart Sounds Pulmonary Exam: Clear Bilateral Breath Sounds Implantable Cardiac Device Does patient have a Pacemaker or an ICD?: No Airway Exam Known Difficult Airway: No Mallampati Class: 1 Mouth Opening: Normal (> 3cm) Thyromental Distance: Greater than 3 cm Neck Range of Motion: Full ROM Neck Circumference: Normal Teeth Condition: Removable Dentures/Plates Upper and Removable Dentures/Plates Lower ASA Classification ASA Score: ASA 2 Emergency Case?: No NPO Status NPO Status: NPO Clears >2 hours, Solids >8 hours Anesthesia Plan Resuscitation Status: Full Code Anesthesia Technique: General Anesthesia Airway Planned: Natural Airway Monitors Used: Standard Monitors
[2023-01-23 09:13] VITALS: BMI 21.4
--- NOTE | 2023-01-23 09:27 | BOWEL_PTH ---
PATIENT: Pinky Dillon LOC: [facility] U#:[id number] AGE/SX: 67/F ROOM: RE01/23/[address]: Jae Baez MD : 1955 BED: DIS: 01/23/2023 SPEC #: [id number] RECD: 01/23/23 13:00 STATUS: [facility] #: [id number] AVELINA: 01/23/23 09:[address]: Jae Baez DEPT: Surgical Specimen RECD BY: Jumana Carey ENTERED: 01/23/23 13:00 SP TYPE: Bowel OTHR DR: Kate Goff Tissues: 1 - BIOPSY BOWEL 2 - BIOPSY BOWEL Procedures: GROSS AND MICRO LEVEL 4 Comments: [id number]
[2023-01-23 10:00] VITALS: BP 106/75; PULSE 69; RESP 16; TEMP 36.2; O2SAT 97
[2023-01-23 10:29] VITALS: BP 128/80; PULSE 62; RESP 16; TEMP 36.3; O2SAT 98
--- NOTE | 2023-01-23 10:48 | W.ANESPOSTOP ---
Postoperative Evaluation Date, Time and Location Date Performed: 01/23/23 Time Performed: 10:48 Patient Location: Day Surgery Unit Vital Signs Most Recent Imported Vital Signs: Most Recent Vital Signs Temp Pulse Resp BP Pulse Ox 36.3 C L 62 16 128/80 98 01/23/23 10:29 01/23/23 10:29 01/23/23 10:29 01/23/23 10:29 01/23/23 10:29 Pain Score Most Recent Pain Score: Most Recent Pain Score Pain Level 0 01/23/23 10:29 Assessment Mental Status: Awake (Alert & Oriented to Patient Baseline) Airway and Respiratory Function: Patent airway with normal (patient baseline) respiratory exam Cardiovascular Function: Hemodynamically Stable Hydration Status: Adequately Hydrated Nausea & Vomiting: No Nausea or Vomiting Pain: Pt. Denies Any Pain Peripheral Nerve Block: Patient did not receive a nerve block
== END 2023-01-23 11:00 | disposition home or self-care (01) ==
PROVIDERS: PCP Family Medicine; Visit Provider Surgery
PROC: 0DJD8ZZ Inspection of Lower Intestinal Tract, Via Natural or Artificial Opening Endoscopic (ICD-10-PCS; CPT 45378; principal; 2023-01-23 09:00)
DX: Z12.11 Encounter for screening for malignant neoplasm of colon (principal); K62.1 Rectal polyp; K63.5 Polyp of colon; Z86.010 Personal history of colon polyps; Z80.0 Family history of malignant neoplasm of digestive organs
CPT/HCPCS: 45380; 88305; J2001

== ENCOUNTER 2023-03-08 10:42 | Outpatient (CLI) | payer OTHER, SELFPAY ==
[2023-03-08 12:09] LABS: Abs Immature Grans 0.01 10^3/uL (0.0-0.06); Absolute Basophil Count 0.06 10^3/uL (0.0-0.2); Absolute Eosinophil Count 0.15 10^3/uL (0.0-0.7); Absolute Lymphocyte Count 1.87 10^3/uL (1.2-3.4); Absolute Monocyte Count 0.69 10^3/uL (0.1-0.8); Absolute Neutrophil Count 3.59 10^3/uL (1.2-6.7); Basophils % 0.9; Eosinophils % 2.4; HCT 40.8 % (36.0-46.0); HGB 13.2 g/dL (11.2-15.7); Immature Grans % 0.2; Lymphocytes % 29.4; MCH 29.7 pg (27.0-33.0); MCHC 32.4 % (32.0-36.0); MCV 92 fL (80-95); MPV 10.3 fL (8.0-11.0); Monocytes % 10.8; Neutrophils % 56.3; Platelet Count 128 10^3/uL (130-400); RBC 4.45 10^6/uL (3.93-5.22); RDW 13.8 % (11.7-14.6); RDW-SD 47.1 fL; WBC 6.37 10^3/uL (4.4-10.8)
[2023-03-08 12:15] LABS: ESR 49 mm/hr (0-30)
[2023-03-08 12:40] LABS: ALT 58 U/L (14-59); AST 53 U/L (15-37); Albumin 3.8 g/dL (3.4-5.0); Alkaline Phosphatase 317 U/L (46-116); Anion Gap 10.3 mmol/L (3-11); BUN 13 mg/dL (7-18); Bilirubin, Total 0.8 mg/dL (0.2-1.0); CO2 23.7 mmol/L (21.0-32.0); CREATININE 0.8 mg/dL (0.55-1.02); Calcium 9.5 mg/dL (8.5-10.1); Chloride 104 mmol/L (98-107); Estimated GFR 80.21 (mL/min/1.73m2); Glucose 104 mg/dL (74-106); Sodium 138 mmol/L (136-145); Total Protein 8.1 g/dL (6.4-8.2); Uric Acid 5.2 mg/dL (2.6-6.0)
[2023-03-08 18:12] LABS: Rheumatoid Factor 34.1 IU/mL (<12.0)
[2023-03-09 13:38] LABS: Lab Add On Test DONE
[2023-03-09 13:53] LABS: GGT 433 U/L (5-55)
[2023-03-09 14:56] LABS: ANA Interpretation Positive (Negative)
== END 2023-03-08 10:43 | disposition home or self-care (01) ==
PROVIDERS: PCP Family Medicine; Referring Provider Physician Assistant; Visit Provider Physician Assistant
DX: R21 Rash and other nonspecific skin eruption (principal); R74.8 Abnormal levels of other serum enzymes
CPT/HCPCS: 36415; 80053; 85652; 87040; 82977; 84550; 85025; 86038; 86431

== ENCOUNTER 2023-03-08 11:21 | Outpatient (REF) | payer OTHER, SELFPAY | END 2023-03-08 11:22 | disposition home or self-care (01) | LOC: LBN 11:21 | PROVIDERS: PCP Family Medicine; Visit Provider Physician Assistant | DX: L98.9 Disorder of the skin and subcutaneous tissue, unspecified (principal) | CPT/HCPCS: 87077; 87070; 87186; 87205 ==

== ENCOUNTER 2023-03-14 02:05 | Outpatient (CLI) | payer OTHER, SELFPAY ==
[2023-03-15 18:01] LABS: Centromere Ab, IgG >8.0 U (<1.0 (Neg)); Scl 70 Antibodies, IgG <0.2 U
[2023-03-16 20:44] LABS: Mitochondrial Ab, M2 1.9 U
[2023-03-17 12:08] LABS: dsDNA Ab, IgG <12.3 IU/mL (<30.0)
== END 2023-03-14 02:06 | disposition home or self-care (01) ==
LOC: LBO 02:05
PROVIDERS: PCP Family Medicine; Visit Provider Family Medicine
DX: R74.8 Abnormal levels of other serum enzymes (principal); R76.8 Other specified abnormal immunological findings in serum
CPT/HCPCS: 36415; 83516; 83520; 86225; 86235

== ENCOUNTER → 2023-03-20 14:03 | Outpatient (CLI) | payer OTHER, SELFPAY ==
--- NOTE | 2023-03-20 12:45 | DI.RAD_ITS ---
Exam(s) XR CHEST 2V PA LATERAL EXAM: XR CHEST 2V PA LATERAL CLINICAL HISTORY: Eval for pulm changes with binh RYANN level, R76.8 TECHNIQUE: 2D digital imaging was performed. COMPARISON: CR,XR XR CHEST 1V IN DI DEPT from 03/25/2022 FINDINGS: HEART: Mildly enlarged, unchanged. Aorta: Mildly tortuous. PULMONARY VASCULATURE: Normal. LUNGS: Diffusely mildly increased interstitial changes. No focal infiltrate. PLEURAL SPACE: No pleural effusion or pneumothorax. BONE:Unremarkable for age. Soft tissues: Unremarkable. IMPRESSION: Mild diffuse interstitial changes slight worsening when compared with prior. DATA REPOSITORY: RADIATION DOSE DELIVERED:
== END ==
PROVIDERS: PCP Family Medicine; Visit Provider Family Medicine
DX: R76.8 Other specified abnormal immunological findings in serum (principal); J84.9 Interstitial pulmonary disease, unspecified
CPT/HCPCS: 71046

== ENCOUNTER → 2023-08-30 11:32 | Outpatient (CLI) | payer MEDICARE, SELFPAY ==
--- NOTE | 2023-08-30 11:15 | DI.RAD_ITS ---
Exam(s) XR CHEST 2V PA LATERAL EXAM: XR CHEST 2V PA LATERAL CLINICAL HISTORY: evaluate pneumonia, cough, R05.9. TECHNIQUE: 2D digital imaging was performed. COMPARISON: CR XR CHEST 2V PA LATERAL from 03/20/2023 FINDINGS: 2 views: Heart size is normal. The mediastinum is not widened. Scarring in the lung apices again noted, right more than left. Mild increased interstitial markings in lung crawford again noted but no new confluent infiltrates and no pleural effusions. No evidence of pulmonary edema. No significant change compared to 03/20/2023. IMPRESSION: Findings as above without significant change compared to prior chest x-ray of 03/20/2023. DATA REPOSITORY: RADIATION DOSE DELIVERED:
== END ==
PROVIDERS: PCP Family Medicine; Visit Provider Nurse Practitioner Family
DX: R05.9 Cough, unspecified (principal); R91.8 Other nonspecific abnormal finding of lung field
CPT/HCPCS: 71046

== ENCOUNTER 2023-12-18 01:50 | Outpatient (CLI) | payer MEDICARE, SELFPAY ==
--- NOTE | 2023-12-18 06:00 | DI.MAMMO_ITS ---
Exam(s) MAMMO SCREENING EXAM: MAMMO SCREENING CLINICAL HISTORY: screening,z12.39 TECHNIQUE: Mammograms were interpreted according to the usual protocol including computer analysis w CAD Best CAD system, tomosynthesis and C-view imaging. COMPARISON: 2014 through 2022 FINDINGS: The breasts are composed of heterogeneously dense fibroglandular densities, Breast Density category C . No suspicious masses or suspicious microcalcifications are seen. No skin thickening or abnormal axillary lymph nodes are seen. There has been no significant change from prior exams. IMPRESSION: BI-RADS Category 1, Negative mammogram. Yearly screening mammography is recommended. Breast Density Category C, heterogeneously Dense. The mammogram demonstrates the patient's breast tissue is dense. Dense breast tissue is very common a nd is not abnormal but dense breast tissue can make it harder to find cancer on a mammogram. Also, de nse breast tissue may increase breast cancer risk. This information about the result of the mammogram report was provided to the patient to raise their awareness. Use this report when you speak with the patient about their risks for breast cancer, which includes their family history. At that time, you may recommend additional screening tests (Ultrasound or MRI) as they might be useful based on their r isk. A negative radiographic report should not delay biopsy if a dominant or clinically suspicious mass is present. Up to ten percent of cancers are not identified on mammography. A negative report may reinforce clinical impression. Adenosis and dense breasts may obscure an underlying neoplasm. False positive reports average 6 to 10%.
== END 2023-12-18 02:10 ==
LOC: DI 01:50
PROVIDERS: PCP Family Medicine; Visit Provider Family Medicine
DX: Z12.31 Encounter for screening mammogram for malignant neoplasm of breast (principal)
CPT/HCPCS: 77063; 77067

== ENCOUNTER 2023-12-18 01:51 | Outpatient (CLI) | payer MEDICARE, SELFPAY ==
--- NOTE | 2023-12-18 09:41 | DI.RAD_ITS ---
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 TECHNIQUE: 2D digital imaging was performed of the right ankle and foot. Six images were obtained. AP, oblique and lateral views were obtained. COMPARISON: No previous for comparison. FINDINGS: BONES: No acute fracture is present. No bony destructive lesion is seen. No terminal tuft resorption is seen. There is a small plantar calcaneal spur. There is a small enthesophyte at the posterior c alcaneus. JOINTS: No dislocation present. There are degenerative changes seen in the foot particularly the DIP joints of the toes and the 1st MTP joint. The ankle joint is well maintained. SOFT TISSUE: Soft tissue calcifications are seen in the 5th toe. IMPRESSION: 1. Degenerative changes seen in the right foot. 2. No terminal tuft resorption. 3. Soft tissue calcification seen in the 5th toe. DATA REPOSITORY: RADIATION DOSE DELIVERED:
--- NOTE | 2023-12-18 09:41 | DI.RAD_ITS ---
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 TECHNIQUE: 2D digital imaging was performed of the left ankle and foot. Six images were obtained. AP, oblique and lateral views were obtained. COMPARISON: No priors for comparison. FINDINGS: BONES: No acute fracture is present. No bony destructive lesion is seen. There is an enthesophyte at the posterior calcaneus. There is a small plantar calcaneal spur. No destructive changes are seen i n the terminal venus. JOINTS: No dislocation present. The joint spaces are well maintained with minimal degenerative change present. The ankle joint is well maintained. SOFT TISSUE: Normal. IMPRESSION: No acute abnormality. Calcaneal spurs. DATA REPOSITORY: RADIATION DOSE DELIVERED:
== END 2023-12-18 02:11 ==
LOC: DI 01:53
PROVIDERS: PCP Family Medicine; Visit Provider Student in an Organized Health Care Education/Training Program
DX: M19.071 Primary osteoarthritis, right ankle and foot (principal); M19.072 Primary osteoarthritis, left ankle and foot
CPT/HCPCS: 73610; 73630

== ENCOUNTER → 2023-12-26 09:25 | Outpatient (BNVA) | payer MEDICARE, SELFPAY | PROVIDERS: PCP Family Medicine; Referring Provider Family Medicine; Visit Provider Podiatrist | DX: L84 Corns and callosities (principal); I73.00 Raynaud's syndrome without gangrene; M20.41 Other hammer toe(s) (acquired), right foot; G62.9 Polyneuropathy, unspecified; B35.3 Tinea pedis; M79.674 Pain in right toe(s); L85.8 Other specified epidermal thickening; R09.89 Other specified symptoms and signs involving the circulatory and respiratory systems; R20.8 Other disturbances of skin sensation; R20.1 Hypoesthesia of skin | CPT/HCPCS: 11056; 99204; 99214 ==

== ENCOUNTER 2024-05-13 02:01 | Outpatient (CLI) | payer MEDICARE, SELFPAY ==
--- NOTE | 2024-05-13 | DI.US_ITS ---
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 cirrhosis TECHNIQUE: Ultrasound abdomen performed using standard protocol. COMPARISON: No exams were available for comparison FINDINGS: LIVER: Nor enlarged at 19.1 cm in length. Heterogeneous, coarsened echotexture. Mild nodularity of the liver surface. No focal liver lesions are seen. Hepatopetal flow in the portal vein. GALLBLADDER: No evidence of cholelithiasis. No evidence of wall thickening. No pericholecystic fluid identified. LEE'S SIGN: Negative. BILIARY SYSTEM: No intrahepatic or extrahepatic biliary ductal dilation. KIDNEYS: Kidneys are symmetric in size. No evidence of renal calculi. No evidence of hydronephrosis. No suspicious renal mass identified. 7 millimeter fatty echogenicity lesion at the inferior pole of the right kidney could represent a small angiomyolipoma. No follow-up recommended. PANCREAS: Normal where visualized. SPLEEN: Not enlarged at 16 cm in length. ABDOMINAL AORTA AND IVC: Visualized portions normal caliber. Atherosclerotic changes. ASCITES: None seen. IMPRESSION: Enlarged liver with coarsened echotexture consistent with cirrhotic changes. Splenomegaly also noted . DATA REPOSITORY:
== END 2024-05-13 02:21 ==
LOC: DI 02:01
PROVIDERS: PCP Family Medicine; Visit Provider Internal Medicine
DX: R16.1 Splenomegaly, not elsewhere classified (principal)
CPT/HCPCS: 76700

== ENCOUNTER 2024-05-13 12:33 | Outpatient (CLI) | payer MEDICARE, SELFPAY ==
[2024-05-13 09:50] LABS: Abs Immature Grans 0.01 10^3/uL (0.0-0.06); Absolute Basophil Count 0.02 10^3/uL (0.0-0.2); Absolute Eosinophil Count 0.06 10^3/uL (0.0-0.7); Absolute Lymphocyte Count 1.38 10^3/uL (1.2-3.4); Absolute Monocyte Count 0.45 10^3/uL (0.1-0.8); Absolute Neutrophil Count 2.56 10^3/uL (1.2-6.7); Basophils % 0.4 %; Eosinophils % 1.3 %; HCT 40.2 % (36.0-46.0); HGB 12.9 g/dL (11.2-15.7); Immature Grans % 0.2 %; Lymphocytes % 30.8 %; MCH 29.5 pg (27.0-33.0); MCHC 32.1 % (32.0-36.0); MCV 92 fL (80-95); MPV 10.4 fL (8.0-11.0); Neutrophils % 57.3 %; Platelet Count 118 10^3/uL (130-400); RBC 4.37 10^6/uL (3.93-5.22); RDW 13.4 % (11.7-14.6); RDW-SD 45.7 fL; WBC 4.48 10^3/uL (4.4-10.8)
[2024-05-13 09:59] LABS: Prothrombin Time 9.9 sec (9.1-11.1)
[2024-05-13 10:16] LABS: ALT 19 U/L (14-59); AST 24 U/L (15-37); Albumin 3.9 g/dL (3.4-5.0); Alkaline Phosphatase 111 U/L (46-116); Anion Gap 10.7 mmol/L (3-11); BUN 14 mg/dL (7-18); Bilirubin, Total 0.55 mg/dL (0.2-1.0); CO2 26.3 mmol/L (21.0-32.0); CREATININE 0.9 mg/dL (0.55-1.02); Calcium 9.5 mg/dL (8.5-10.1); Chloride 104 mmol/L (98-107); Glucose 119 mg/dL (74-106); Potassium 4.5 mmol/L (3.5-5.1); Sodium 141 mmol/L (136-145); TSH 2.51 uIU/mL (0.36-3.74); Total Protein 7.9 g/dL (6.4-8.2)
== END 2024-05-13 12:34 | disposition home or self-care (01) ==
LOC: LBO 12:36
PROVIDERS: PCP Family Medicine; Visit Provider Internal Medicine
DX: R19.7 Diarrhea, unspecified (principal); E50.9 Vitamin A deficiency, unspecified; K74.3 Primary biliary cirrhosis
CPT/HCPCS: 36415; 80053; 76700; 84425; 84443; 84590; 85025; 85610

== ENCOUNTER 2024-08-09 21:59 | Outpatient (REF) | payer MEDICARE, SELFPAY | END 2024-08-09 22:00 | disposition home or self-care (01) | LOC: LBN 21:59 | PROVIDERS: PCP Family Medicine; Visit Provider Nurse Practitioner Family | DX: R30.0 Dysuria (principal); B96.1 Klebsiella pneumoniae [K. pneumoniae] as the cause of diseases classified elsewhere | CPT/HCPCS: 87077; 87086; 87186 ==

== ENCOUNTER 2025-01-29 04:10 | Outpatient (CLI) | payer MEDICARE, SELFPAY ==
--- NOTE | 2025-01-30 10:16 | W.PFT ---
Date of service: 01/29/25 Time of Service: 09:50 Pulmonary Function Test Result Indications: CREST syndrome Impression 1. Good patient effort was noted. ATS standards for reproducibility were met. 2. Spirometry showed an FEV1:FVC ratio that was slightly below predicted at 74. This can be seen with mild obstruction or be a normal variant. FEF 25-75 was reduced at 70%, consistent with small airways disease 3. TLC was normal. No evidence of restrictive lung disease 4. DLCO was reduced at 69% predicted, consistent with a mild defect in alveolar gas exchange
== END 2025-01-29 04:11 | disposition home or self-care (01) ==
LOC: RT 04:11
PROVIDERS: PCP Nurse Practitioner Family; Visit Provider Internal Medicine Pulmonary Disease
DX: M34.1 CR(E)ST syndrome (principal)
CPT/HCPCS: 94010; 94726; 94729; 94060

== ENCOUNTER 2025-04-22 14:12 | Outpatient (REF) | payer MEDICARE, SELFPAY ==
[2025-04-22 17:24] LABS: Glucose Negative (Negative)
== END 2025-04-22 14:13 | disposition home or self-care (01) ==
LOC: LBN 14:12
PROVIDERS: PCP Nurse Practitioner Family; Visit Provider Physician Assistant Medical
DX: R39.9 Unspecified symptoms and signs involving the genitourinary system (principal)
CPT/HCPCS: 81003